=== PATIENT | male | born 1985 | race American Indian/Alaskan Native ===

== ENCOUNTER → 2024-05-29 | Outpatient (CLI) | payer OTHER, MEDICAID, SELFPAY | END | disposition home or self-care (01) | LOC: SWHD 12:37 | PROVIDERS: PCP Physician Assistant; Referring Provider Physician Assistant; Visit Provider Student in an Organized Health Care Education/Training Program | DX: I87.312 Chronic venous hypertension (idiopathic) with ulcer of left lower extremity (principal); L97.821 Non-pressure chronic ulcer of other part of left lower leg limited to breakdown of skin; R60.0 Localized edema; F17.200 Nicotine dependence, unspecified, uncomplicated; I10 Essential (primary) hypertension; E11.69 Type 2 diabetes mellitus with other specified complication; E66.9 Obesity, unspecified | CPT/HCPCS: 97597; 97598 ×2; 99213; A9270; G0463 ==

== ENCOUNTER → 2024-06-01 | Outpatient (CLI) | payer OTHER, MEDICAID, SELFPAY | END | disposition home or self-care (01) | LOC: SWHD 10:01 | PROVIDERS: PCP Physician Assistant; Referring Provider Physician Assistant | DX: I87.312 Chronic venous hypertension (idiopathic) with ulcer of left lower extremity (principal); L97.821 Non-pressure chronic ulcer of other part of left lower leg limited to breakdown of skin; R60.0 Localized edema; F17.200 Nicotine dependence, unspecified, uncomplicated; I10 Essential (primary) hypertension; E11.69 Type 2 diabetes mellitus with other specified complication; E66.9 Obesity, unspecified | CPT/HCPCS: 29581 ==

== ENCOUNTER → 2024-06-05 | Outpatient (CLI) | payer OTHER, MEDICAID, SELFPAY | END | disposition home or self-care (01) | LOC: SWHD 10:29 | PROVIDERS: PCP Physician Assistant; Referring Provider Physician Assistant; Visit Provider Surgery | DX: L97.821 Non-pressure chronic ulcer of other part of left lower leg limited to breakdown of skin (principal); R60.0 Localized edema; F17.200 Nicotine dependence, unspecified, uncomplicated; I10 Essential (primary) hypertension; E11.69 Type 2 diabetes mellitus with other specified complication; E66.9 Obesity, unspecified | CPT/HCPCS: 29581 ==

== ENCOUNTER → 2024-06-12 | Outpatient (CLI) | payer OTHER, MEDICAID, SELFPAY | END | disposition home or self-care (01) | LOC: SWHD 11:01 | PROVIDERS: PCP Physician Assistant; Referring Provider Physician Assistant; Visit Provider Student in an Organized Health Care Education/Training Program | DX: I87.312 Chronic venous hypertension (idiopathic) with ulcer of left lower extremity (principal); L97.821 Non-pressure chronic ulcer of other part of left lower leg limited to breakdown of skin; R60.0 Localized edema; I10 Essential (primary) hypertension; E11.69 Type 2 diabetes mellitus with other specified complication; E66.9 Obesity, unspecified | CPT/HCPCS: 99212; G0463 ==

== ENCOUNTER 2025-01-16 14:52 | Inpatient (IN) | payer OTHER, MEDICAID, SELFPAY ==
[2025-01-16] VITALS (10 sets, daily range): BP systolic 131–170; BP diastolic 66–102; PULSE 100–124; RESP 18–44; TEMP 37.2–39.5; O2SAT 93–100; BMI 101.7
--- NOTE | 2025-01-16 15:38 | XR_ITS ---
Examination: AP chest single view TECHNIQUE: AP portable semiupright chest single view Date and time: January 16, 2025 1545 hours INDICATIONS: Sepsis protocol fever today FINDINGS: Minor prominence left ventricle No lobar pneumonia. Stable granuloma right lower lobe IMPRESSION: No lobar pneumonia
--- NOTE | 2025-01-16 15:38 | EKG_ITS ---
[facility] Test Date: 2025-01-16 Pat Name: NANY MONREAL Department: Room: - Gender: Male Librarian: : 1985 Requested By: Clemencia Styles Order Number: [id number] Reading MD: Clemencia Styles Measurements Intervals [place] Rate: 107 P: 65 FL: 124 QRS: 97 QRSD: 109 T: 29 QT: 335 QTc: 447 Interpretive Statements SINUS TACHYCARDIA WITH FREQUENT VENTRICULAR PREMATURE COMPLEXES BORDERLINE RIGHT AXIS DEVIATION [QRS AXIS > 90] ABNORMAL RHYTHM ECG No previous ECG available for comparison /[id number]/S0/[id number]
[2025-01-16 16:06] LABS: Basophils # (Auto) 0.1 Thou/mm3 (0.0-0.2); Basophils % (Auto) 0 % (0-2.5); Eosinophils # (Auto) 0.0 Thou/mm3 (0.0-0.5); Eosinophils % (Auto) 0 % (0-10); Hematocrit 43.8 % (41.0-53.0); Hemoglobin 14.8 g/dL (13.5-16.0); Immature Granulocytes Auto 0.21 Thou/mm3 (0.00-0.00); Lymphocytes # (Auto) 0.8 Thou/mm3 (1.0-4.8); Lymphocytes % (Auto) 4 % (10-50); Mean Corpuscular HGB Conc 33.8 g/dl (31.0-37.0); Mean Corpuscular Hemoglobin 27.7 pg (25.0-35.0); Mean Corpuscular Volume 82 fL (80-100); Monocytes # (Auto) 0.6 Thou/mm3 (0.0-0.8); Monocytes % (Auto) 3 % (0-12); Neutrophils # (Auto) 16.3 Thou/mm3 (1.8-7.7); Neutrophils % (Auto) 91 % (37-80); Nucleated Red Blood Cell # 0.00 Thou/mm3 (0.00-0.00); Nucleated Red Blood Cell % 0 /100 WBC (0); Platelet Count 231 Thou/mm3 (140-440); RDW Standard Deviation 46.5 fL (35.1-43.9); Red Blood Count 5.34 Miln/mm3 (4.50-5.90); White Blood Count 17.9 Thou/mm3 (3.8-10.6)
[2025-01-16 16:07] LABS: Lactate (Lactic Acid) 3.0 mMol/L (0.4-2.0)
[2025-01-16] MEDS: ACETAMINOPHEN 500 MG TABLET 1000 MG PO (16:19)
[2025-01-16 16:23] LABS: INR 1.2 (0.9-1.3); Partial Thromboplastin Time 32.8 Seconds (22.0-36.0); Prothrombin Time 13.0 Seconds (9.0-12.2)
[2025-01-16 16:32] LABS: Alanine Aminotransferase 43 U/L (10-49); Albumin, Serum 4.0 gm/dL (3.5-5.0); Albumin/Globulin Ratio 1.1 (1.2-2.2); Alkaline Phosphatase 79 U/L (46-116); Anion Gap 13 (7-16); Aspartate Amino Transferase 63 U/L (0-34); BUN/Creatinine Ratio 11 Ratio (12-20); Bilirubin,Total 0.8 mg/dL (0.3-1.2); Blood Urea Nitrogen 17 mg/dL (9-23); Calcium 8.9 mg/dL (8.3-10.6); Calcium (Corrected) 8.9 mg/dL (8.5-10.1); Carbon Dioxide 21.5 mMol/L (20.0-31.0); Chloride 97 mMol/L (98-107); Creatinine (Component) 1.5 mg/dL (0.6-1.3); Estimated Creatinine Clearance 159.7 mL/min (>60); Globulin 3.7 gm/dL (2.3-3.5); Glucose 123 mg/dL (74-106); Osmolality,Calculated 265 (275-295); Potassium 4.0 mMol/L (3.4-5.1); Procalcitonin 5.45 ng/ml (0.0-0.49); Sodium 131 mMol/L (136-145); Total Protein 7.7 gm/dL (5.7-8.2); eGFR > 60 See Note
--- NOTE | 2025-01-16 16:36 | PC.CC ---
Addendum entered by Sabino Kenney RN 01/16/25 19:06: 1902 called [facility], spoke to Sera and notified the measurements. 185 received call from ED charge nurse about pt measurements PT'S ABDOMINAL GIRTH WITH BILATERAL TO THE SIDE MEASURED ABOUT 90 INCHES. PT'S ABDOMINAL GIRTH WITHOUT HANDS TO THE SIDE MEASURED ABOUT 88 INCHES. Addendum entered by Sabino Kenney RN 01/16/25 18:04: 1757 received call from Natty at [facility]. She stated to measure the widest point/circumference of the patient. She also stated they might be able to do weight but their limit for circumference is 27 inches. I called ED charge nurse, informed about doing measurements and call me back. Addendum entered by Sabino Kenney RN 01/16/25 17:54: 1746 received call from Natty at [facility]. Natty stated Yary has a [address] She wants to speak to [facility]. Conference call connected. 1736 called [facility], spoke to Maykel and initiated the transfer. She stated the nurse will give me a call back for verbal clinicals. Addendum entered by Sabino Kenney RN 01/16/25 17:36: 1735 clinicals sent to [facility]. Addendum entered by Sabino Kenney RN 01/16/25 17:25: 1724 Received call from Eda at [facility] and initiated the transfer. Ead stated the transfer request is declined because their CT weight limit is 204 kg, and MRI weight limit is 181kg. Addendum entered by Sabino Kenney RN 01/16/25 17:15: 1715 Called [facility] to initiate the transfer, left VM. Addendum entered by Sabino Kenney RN 01/16/25 17:07: [address] [facility] and [facility]. Original Note: 1636 received call from [facility] pt needs to be transferred for imaging, pt weight is 312.525 kg. Pt is septic, sob, cellulites of left lower leg, redness to right groin. Informed [facility] that I need ER provider notes in order to send clinicals.
--- NOTE | 2025-01-16 16:37 | PC.NURSE ---
SPOKE TO ORTHOTICS PROSTHETICS ASSISTANT AND THIS RN WAS MADE AWARE THAT ORTHOTICS PROSTHETICS ASSISTANT UNABLE TO TAKE SCANS FOR THIS PT DUE TO PT'S HABITUS; [facility] L[facility]. MILTON ZAPATA MADE AWARE.
[2025-01-16] MEDS: Vancomycin Inj 2,000 MG in SODIUM CHLORIDE 0.9% 500 ML 500 ML 150 MG IV (16:45)
[2025-01-16 16:46] LABS: Collection Type, Urine Voided
--- NOTE | 2025-01-16 16:56 | PD.EDEXREM ---
ED Extremity Problem RME/HPI General Chief complaint: Extremity Problem,Nontraumatic Stated complaint: LEG PAIN Time Seen by Provider: 01/16/25 15:38 Source: patient and EMS Arrival date/time: 01/16/25 14:52 Limitations: no limitations RME / HPI RME / HPI Narrative: 39-year-old male who is brought in by EMS. He will went to clinic today for left lower leg pain, shortness of breath, and right groin pain. When he arrived, he triggered our sepsis alert. There is for the past 3 days, sudden increased swelling and pain in his left lower leg. He has a history of hypertension, no diabetes. Denies any falls or injuries. Has no cough. No chest pain. Has no nausea, vomiting, or diarrhea. No urinary complaints. He has no dysuria. No falls or injuries. He is able to self transfer and is weight bearing. Related Data Previous Rx's ?Medication ?Instructions ?Recorded Lactobacillus rhamnosus GG 10 1 cap PO BID #60 caps 05/18/19 billion cell capsule (Culturelle) ascorbic acid (vitamin C) 250 mg 500 mg (2 x 250 mg) PO BID #60 tabs 05/18/19 tablet (Vitamin C) hydrochlorothiazide 12.5 mg capsule 12.5 mg PO QDAY #30 caps 05/18/19 ibuprofen 800 mg tablet 800 mg PO BID PRN pain #14 tabs 05/18/19 lisinopril 20 mg tablet 20 mg PO QDAY #30 tabs 05/18/19 multivitamin with minerals-ferrous 1 tab PO QDAY #30 tabs 05/18/19 sulfate 4.5 mg iron tablet (One Daily Multivitamins with Minerals) zinc sulfate 50 mg zinc (220 mg) 220 mg (4.4 x 50 mg zinc (220 mg)) 05/18/19 capsule PO QDAY #30 caps Allergies Allergy/AdvReac Type Severity Reaction Status Date / Time brompheniramine Allergy Unknown SOB Verified 01/16/25 15:31 dextromethorphan Allergy Unknown SOB Verified 01/16/25 15:31 phenylpropanolamine Allergy Unknown SOB Verified 01/16/25 15:31 pseudoephedrine Allergy Unknown SOB Verified 01/16/25 15:31 shellfish derived Allergy Unknown ALLERGY Verified 01/16/25 15:31 SYMPTOMS Review of Systems Review of Systems Systems Reviewed: All systems reviewed, normal except as documented ED Exam General Limitations: Present no limitations General appearance: Present alert and in no apparent distress Head Head exam: Present atraumatic Eye Eye exam: Present normal appearance, PERRL and EOMI ENT ENT exam: Present normal exam, normal oropharynx and mucous membranes moist Neck Neck exam: Present normal inspection, full ROM and trachea midline Chest Chest inspection: Present normal inspection and symmetric chest wall rise Respiratory Respiratory exam: Present normal lung sounds bilaterally (Lung tones are distant); Absent wheezes, stridor or accessory muscle use Cardiovascular Cardiovascular exam: Present tachycardia and normal heart sounds Abdominal Exam Abdominal exam: Present soft, normal bowel sounds and other (There is mild erythema and skin warmth below the pannus no open wounds are present.); Absent tenderness, guarding or rebound Extremities Exam Extremities exam: Present normal inspection, full ROM and other (There is bilateral lower leg edema. This is worse on the left. There is diffuse induration, warmth, erythema, and mild fluctuance at the left lower leg along the anterior aspect.) Back Exam Back exam: Present normal inspection and full ROM Neurological Exam Neurological exam: Present alert and oriented X3 Psychiatric Psychiatric exam: Present normal affect and normal mood Skin Skin exam: Present warm, dry, intact and normal color Course Course Course Narrative: Care signed out to Dr. Joe at shift change. Quality Measures none Orders Category Date Time Status Bedside Blood Glucose NOW Care 01/16/25 15:[address] Screening NOW Care 01/16/25 15:47 Active Rn Intake Q4H START 00 Care 01/16/25 15:38 Active Insert IV NOW Care 01/16/25 15:38 Active Strict Intake and Output Routine Care 01/16/25 15:38 Ordered Transfer to another facility [Transfer/Discharge] Stat Discharge 01/16/25 16:35 Active CA echo doppler complete Stat Exams 01/16/25 23:[address] abdomen pelvis w con Stat Exams 01/16/25 15:[address] angio chest Stat Exams 01/16/25 15:[address] lower leg LT w con Stat Exams 01/16/25 15:46 Ordered US abdomen Stat Exams 01/16/25 23:09 Ordered US renal BI Stat Exams 01/17/25 00:03 Ordered US venous doppler LE LT Stat Exams 01/16/25 23:09 Ordered XR chest 1V SEPSIS PROTOCOL Stat Exams 01/16/25 15:38 Completed XR tibia fibula LT 2V Stat Exams 01/16/25 17:05 Completed BNP [B-Type Natriuretic Peptide] Stat Lab 01/16/25 15:48 Completed Blood Culture (Lab) Stat Lab 01/16/25 15:48 Received CBC Stat Lab 01/16/25 15:48 Completed Comprehensive Metabolic Panel Stat Lab 01/16/25 15:48 Completed Lactate (Lactic Acid) Stat Lab 01/16/25 15:48 Completed Lactic Acid, 3 HR Stat Lab 01/16/25 19:21 Completed Magnesium Stat Lab 01/16/25 15:48 Completed Partial Thromboplastin Time Stat Lab 01/16/25 15:48 Completed Procalcitonin Stat Lab 01/16/25 15:48 Completed Prothrombin Time with INR Stat Lab 01/16/25 15:48 Completed Troponin I Stat Lab 01/16/25 15:48 Completed Urinalysis Stat Lab 01/16/25 16:39 Completed Urine Culture Stat Lab 01/16/25 16:39 Received Acetaminophen Tab [Tylenol ES Tab] Med 01/16/25 15:50 Discontinued 1,000 mg PO X1 ONE Magnesium Sulfate 2 GM Ivpb [Magnesium Sulfate Ivpb] Med 01/17/25 00:03 Active 2 gm in 50 ml IV X1 Sodium Chloride 0.9% 1000 ml [Ns] 1,000 ml Med 01/16/25 22:32 Discontinued IV 999 mls/hr Sodium Chloride 0.9% 1000 ml [Ns] 1,000 ml Med 01/16/25 22:33 Discontinued IV 999 mls/hr Vancomycin Inj 2,000 mg Med 01/16/25 15:46 Discontinued Sodium Chloride 0.9% 500 ml [Ns] 500 ml IV X1 EKG (RT) Stat RT 01/16/25 15:38 Draft Vital Signs Vital signs: Vital Signs Temperature 103.1 F H 01/16/25 15:00 Pulse Rate 100 01/16/25 15:00 Respiratory Rate 22 H 01/16/25 15:00 Blood Pressure 156/74 H 01/16/25 15:00 Pulse Oximetry (%) 100 01/16/25 15:00 Oxygen Delivery Method Nasal Cannula 01/16/25 15:00 Extremity Problem MDM Narrative MDM Narrative:: 39-year-old male who is brought in by EMS. He will went to clinic today for left lower leg pain, shortness of breath, and right groin pain. When he arrived, he triggered our sepsis alert. There is for the past 3 days, sudden increased swelling and pain in his left lower leg. He has a history of hypertension, no diabetes. Denies any falls or injuries. Has no cough. Has nausea, vomiting, or diarrhea. No urinary complaints. He has no dysuria. On exam, patient is an obese, male, with tachycardia and fever. He has moderate tachypnea. Differential includes pulmonary emboli, pneumonia, Del's gangrene, left leg cellulitis, abscess, sepsis. He has a leukocytosis of 17.9 K, hemoglobin hematocrit are stable. He has mild hyponatremia 131. Potassium is 4.0. Creatinine is elevated at 1.5, glucose is 123. His initial lactic acid is 3.0. Urine is pending. Chest ray reveals clear expanded lungs without any mass or infiltrate. Patient received a dose of acetaminophen 1 g, vancomycin 2 g, We were unable to obtain advanced imaging due to the patient's size and our equipment. I do believe the patient warrants further workup including [facility] imaging to assess for possible PE, Del's gangrene, in the left lower extremity. We will obtain plain films in the interim to assess for potential soft tissue gas of the lower leg. However do believe the patient warrants transfer for advanced imaging studies. This was discussed with Dr. Price, the attending ER physician. Patient data External records reviewed:: None Clinical information provided by:: patient and EMS Social determinants that could affect healthcare access:: none Patient has the following chronic illnesses:: Obesity, hypertension How is presenting disease/condition affected by chronic disease/condition?: exacerbated by Evaluation data The following diagnostics were reviewed and interpreted by me:: lab results (Leukocytosis and lactic acidosis) and radiology exam(s) (Chest reveals clear expanded lungs without mass or infiltrate) Lab and/or radiology exams considered but not ordered:: n/a Interpretation Summary: Osteomyelitis, peripheral artery disease Medications / Prescriptions Medications or Prescriptions considered but not ordered:: n./a Medication administrations:: Medication Administration History Magnesium Sulfate (Magnesium Sulfate Ivpb) 2 gm in 50 mls @ 25 mls/hr IV X1 ONE Stop: 01/17/25 02:02 Discontinued Medications Acetaminophen (Acetaminophen 500 Mg Tablet) 1,000 mg PO X1 ONE Stop: 01/16/25 15:51 Last Admin: 01/16/25 16:19 Dose: 1,000 mg Documented By: GM Vancomycin HCl 2,000 mg/ (Sodium Chloride) 500 mls @ 150 mls/hr IV X1 ONE Stop: 01/16/25 19:05 Last Infusion: 01/16/25 20:22 Dose: Infused Documented By: Admin: 01/16/25 16:45 Dose: 10 mg/min, 150 mls/hr Documented By: GM Sodium Chloride (Ns) 1,000 mls @ 999 mls/hr IV .Q1H1M ONE Stop: 01/16/25 23:32 Last Admin: 01/16/25 23:49 Dose: 999 mls/hr Documented By: CG Sodium Chloride (Ns) 1,000 mls @ 999 mls/hr IV .Q1H1M ONE Stop: 01/16/25 23:33 Last Admin: 01/16/25 23:54 Dose: 999 mls/hr Documented By: CG See above Consultations Consultation(s) initiated? (list below): Yes Diagnosis Extremity Problem Differential Diagnosis: cellulitis, lower extremity edema and other (Pulm emboli, Del's gangrene) Most likely diagnosis given after review of the tests above:: Osteomyelitis, peripheral artery disease Admission Indicated Admission indicated?: indicated Admission Request Was there a request for admission?: Yes Admission Attestation Admission request attestation: Discussed case with [] from Hospitalist service regarding admission. Discussed patients ED course, exam findings, labs, and radiology results. The Hospitalist [agrees,declines] to accept the patient for admission. Disposition Plan Disposition Plan: Admit Discharge Plan Prescriptions/Referrals Prescriptions/Med Rec: No Action lisinopril 20 mg Tablet 20 mg PO QDAY Qty: 30 0RF ibuprofen 800 mg tablet 800 mg PO BID PRN (Reason: pain) Qty: 14 0RF ascorbic acid (vitamin C) [Vitamin C] 250 mg Tablet 500 mg PO BID Qty: 60 0RF hydrochlorothiazide 12.5 mg Capsule 12.5 mg PO QDAY Qty: 30 0RF Culturelle 10 billion cell Capsule 1 cap PO BID Qty: 60 0RF zinc sulfate 220 (50) mg Capsule 220 mg PO QDAY Qty: 30 0RF One Daily Multi-Vit w-Mineral 4.5 mg iron Tablet 1 tab PO QDAY Qty: 30 0RF Referrals: No Primary/Family,Physician [Primary Care Provider] - In 1 week Problem List Clinical Impression: Morbid obesity, Cellulitis, Sepsis Patient/Caregiver Discharge Instructions Print Language: Ukrainian
--- NOTE | 2025-01-16 17:05 | XR_ITS ---
Examination: Tibia-Fibula, left , 2 views Technique: Tibia-fibula AP lateral 2 views Date and time of exam: January 16, 2025 1722 hours INDICATIONS: Left leg redness and swelling beginning yesterday. FINDINGS: Soft tissue edema No fracture. No cortical bone destruction No foreign body IMPRESSION: No fracture or cortical bone destruction
[2025-01-16 17:15] LABS: Bacteria,Urine Rare; Bilirubin,Urine 1+ (Negative); Blood,Urine 1+ (Negative); Clarity,Urine Turbid (Clear/Hazy); Color,Urine Yellow (Lt Yel-Yel); Glucose, Urine Negative (Negative); Hyaline Casts,Urine < 1 /hpf (0-1); Ketones,Urine Negative (Negative); Leukocyte Esterase,Urine Negative (Negative); Nitrite,Urine Negative (Negative); PH,Urine 6.0 (5.0-7.0); Protein,Urine 2+ (Neg - Trace); RBC,Urine 4 /hpf (0-3); Specific Gravity,Urine 1.034 (1.001-1.035); Squamous Epithelial Cell,Urine 5 /hpf (0-5); Urobilinogen,Urine 4.0 mg/dL (0.0-1.0); WBC,Urine 19 /hpf (0-5)
--- NOTE | 2025-01-16 18:54 | PC.NURSE ---
PT'S ABDOMINAL GIRTH WITH BILATERAL TO THE SIDE MEASURED ABOUT 90 INCHES. PT'S ABDOMINAL GIRTH WITHOUT HANDS TO THE SIDE MEASURED ABOUT 88 INCHES.
[2025-01-16 19:01] LABS: Reflex Lactate? Y
--- NOTE | 2025-01-16 19:05 | PC.NURSE ---
PT'S ABDOMINAL GIRTH WITH BILATERAL TO THE SIDE MEASURED ABOUT 90 INCHES. PT'S ABDOMINAL GIRTH WITHOUT HANDS TO THE SIDE MEASURED ABOUT 84 INCHES.
[2025-01-16 19:29] LABS: Lactic Acid, 3 HR 1.4 mMol/L (0.4-2.0)
--- NOTE | 2025-01-16 20:32 | PC.NURSE ---
CALLED [facility] , NO AVAILABLE BARIATRIC CT.
--- NOTE | 2025-01-16 20:34 | PC.NURSE ---
CALLED [facility] , [facility] CT.
--- NOTE | 2025-01-16 22:30 | PC.NURSE ---
Route Service Manager assumes care of patient at this time, pt reports pain to left leg x 2 days along with a fever, pt reports pain 6/10. Pt is A/O x 3, noted to be 5 L/min NC and maintaing SaO2 at or above 95%. H.O.B at 30 degrees
[2025-01-16 22:52] LABS: Magnesium 1.1 mg/dL (1.6-2.6); Troponin I < 0.020 ng/mL (0.0-0.045)
--- NOTE | 2025-01-16 22:57 | PC.NURSE ---
CALLED [facility]= OUT OF WEIGHT CAPACITY MIGUELINA LOPEZ =OUT OF WEIGHT CAPACITY [facility]=OUT OF WEIGHT CAPACITY [facility]=OUT OF WEIGHT CAPACITY [facility]=OUT OF WEIGHT CAPACITY
[2025-01-16 23:00] LABS: B-Type Natriuretic Peptide 33 pg/mL (0-100)
--- NOTE | 2025-01-16 23:11 | ECHO_ITS ---
Transthoracic Echo Report Ht (in): 69 Wt (lb): 689 Exam Location: Echo Lab Status: Emergency Summer Child Caregiver: Mica Olson Indications: Procedure Performed: BP: 158 / 85 HR: 96 Technical Quality: Technically difficult study MEASUREMENTS (Male / Female) Normal Values 2D ECHO LV Ejection Fraction MOD 4C 44.3 % LV Cardiac Index MOD 4C 3810.6 cm?/min?m? LV Ejection Fraction 4C AL 44.7 % LV Cardiac Index 4C AL 3972.7 cm?/min?m? DOPPLER AV Peak Velocity 208.5 cm/s AV Peak Gradient 17.4 mmHg AV Mean Gradient 10.0 mmHg AV Velocity Time Integral 32.0 cm LVOT Peak Velocity 123.0 cm/s LVOT Peak Gradient 6.1 mmHg LVOT Velocity Time Integral 23.2 cm MV Area PHT 4.2 cm? Mitral E Point Velocity 88.1 cm/s Mitral A Point Velocity 77.6 cm/s Mitral E to A Ratio 1.1 PV Peak Velocity 137.0 cm/s PV Peak Gradient 7.5 mmHg FINDINGS Left Ventricle Normal left ventricular size, wall thickness, systolic function with no obvious regional wall motion abnormalities. Normal left ventricular diastolic filling pattern for age. The ejection fraction is visually estimated at 50-55%. Right Ventricle The right ventricle not well visualized. The right ventricular systolic function is normal. Left Atrium The left atrium is normal by two-dimensional, color flow and Doppler imaging with no structural abnormalities, no thrombus formation present. Right Atrium The right atrium is normal by two-dimensional imaging, color flow and Doppler imaging with no structural abnormalities, no thrombus formation present. Atrial Septum The interatrial septum appears normal with no evidence of a shunt. Aorta The aorta is normal by two-dimensional, color flow and Doppler interrogation. Mitral Valve Trace mitral regurgitation. Aortic Valve The aortic valve is trileaflet and normal by two-dimensional, color flow and Doppler interrogation. There is no significant aortic valve regurgitation. Tricuspid Valve There is trace tricuspid valve regurgitation. Pulmonic Valve The pulmonic valve is not well visualized. There is no significant pulmonic valve regurgitation. Vessels Dilated inferior vena cava. Pericardium The pericardium is normal by two-dimensional imaging. There is no significant pericardial effusion. CONCLUSIONS Indication: SOB All the cardiac structures suboptimally visualized from standard views. Poor quality images. Normal LV size. The ejection fraction is visually estimated at 50-55%. LVEF can not be assessed accurately. Unable to evaluate diastolic function due to technically difficult study. The RV not well visualized. The RV systolic function appears normal. All the valves suboptimally visualized. Eitan Flores (Electronically Signed) Final Date: 18 January 2025 22:53
--- NOTE | 2025-01-16 23:27 | PD.EDADDENDU ---
Emergency Room Addendum <Carolyne Cabral - Last Filed: 01/17/25 02:07> Addendum Narrative: 2330: Care assumed from BENNY Pryor (emergency mid-level provider). Past medical, surgical, social and family history reviewed. Vitals and home medications reviewed. Results and treatment plan discussed. They will assume the care of the patient at this time and will follow the patient, pending US, doppler studies, and transfer. The following addendum documentation note is intended to reflect any pending information, findings, or radiology results not included in the patient?s initial chart by the previous shift scribe. 0117: Discussed with Dr. De Souza for consult. Reviewed the patient?s HPI, PMHx, lab and/or radiology results. Treatment plan was discussed. Advises to admit with ABX and Dr. De Souza will evaluate the patient in the morning. 0121: Discussed with Dr. Mendes for admission. Reviewed the patient?s HPI, PMHx, lab and/or radiology results. Discussed treatment plan. Will accept patient for admission. <Sarahy Joe MD - Last Filed: 01/17/25 05:46> Addendum Narrative: 2330: Care assumed from BENNY Pryor (emergency mid-level provider). Past medical, surgical, social and family history reviewed. Vital signs and home medications reviewed. Results and treatment plan discussed. Will assume the care of the patient at this time. The following addendum documentation note is intended to reflect any pending information, findings, or radiology results not included in the patient?s initial chart by the previous shift scribe. 0117: Discussed with Dr. De Souza for consult. Reviewed the patient?s HPI, PMHx, lab and/or radiology results. Treatment plan and physical exam was discussed. Patient with cellulitis in suprapubic region and left lower extremity. Unable to obtain CT scan for further evaluation of cellulitis due to patient size. Recommends add clindamycin to current antibiotic regimen. Agrees to consult. 0121: Discussed with Dr. Mendes for admission. Reviewed the patient?s HPI, PMHx, lab and/or radiology results. Discussed treatment plan. Will accept patient for admission.
[2025-01-16] MEDS: SODIUM CHLORIDE 0.9% 1000 ML 1,000 ML 999 ML IV ×2 (23:49→23:54)
[2025-01-17] VITALS (14 sets, daily range): BP systolic 122–172; BP diastolic 75–98; PULSE 78–109; RESP 19–30; TEMP 36.6–37.7; O2SAT 94–100; BMI 101.7
[2025-01-17] MEDS: Magnesium Sulfate 2 GM Ivpb 2 GM/50 ML BAG IV (00:56)
--- NOTE | 2025-01-17 01:31 | PD.RESHP ---
Documentation for date of: 01/17/25 HPI History of Present Illness Chief complaint: Left leg pain History of present illness: 39-year-old patient with past medical history of morbidly obesity, hypertension brought in by EMS on 01/16 after having some lower left back pain with shortness of breath and right groin pain. Patient states that for the past 3 days he has been having worsening left leg pain. Patient apparently is able to ambulate at home but noticed that he was having difficulty in the past several days. He went to his PCP who examined his lower extremity and groin region but stated that he needed to go to the ED as the infection was too severe. Patient states that he has been having fever/chills but unsure exactly what temperature as he does not have a thermometer. Patient denies having any concerning symptoms such as chest pain, palpitations, cough, dizziness, nausea/vomiting or diarrhea. Medical history: As stated above Surgical history: Denies Allergies: As listed Medications: Pending med rec Family history: Significant family history of hypertension and diabetes Social history: Patient lives in [place], denies any tobacco, alcohol or drug use. Patient apparently able to ambulate at home ROS: All 12 systems assessed and the patient denies unless otherwise stated in HPI In the ED, patient presented hypertensive 156/74, tachycardic with heart rate of 100, tachypneic with a respiratory rate 22, febrile 103.1 ?F, saturating 100 on 5 L nasal cannula. Pertinent lab findings included WBC 17.9, sodium 131, chloride 97, BUN 17, creatinine 1.5 with a GFR of greater than 60, lactic acid was initially 3.0 but has downtrended to 1.4, magnesium of 1.1, AST 63, ALT 43, troponin less than 0.030, BNP of 33, Pro-Antoine 5.45. Urinalysis showed proteinuria, hematuria, pyuria but no overt signs of infection. Chest x-ray showed no lobar pneumonia, EKG showed sinus tachycardia with frequent PVCs and tibia-fibula x-ray showed no fracture or cortical bone destruction. Patient will be admitted with sepsis secondary to cellulitis of the left leg and will be treated with IV antibiotics and IV fluid resuscitation for acute kidney injury. Exam Vital Signs Temp Pulse Resp BP Pulse Ox O2 Del Method O2 Flow Rate 99.6 F 89 20 144/90 H 94 L Nasal Cannula 5 01/17/25 00:03 01/17/25 00:03 01/17/25 00:03 01/17/25 00:03 01/17/25 00:03 01/17/25 00:03 01/17/25 00:03 Narrative Exam Physical Exam: GENERAL: Awake, answering questions appropriately, morbidly obese HEENT: NC/AT. Moist mucosa. PERRLA/EOMI. CARDIO: Tachycardic, no obvious murmurs, no JVD. PULM: No coughing but visibly short of breath on 5 L nasal cannula. Lungs CTA B/L. GI: Abdomen soft, Panniculitis noted with erythema, tenderness to palpation in the right lower quadrant, borborygmi apparent SKIN/MSK/EXT: Bilateral lower extremity venous changes, left lower extremity has purulent discharge from a venous ulcer, cellulitis of the left extremity with erythema. +Pedal pulses present B/L. NEURO: Oriented x3, Moves extremities x4, no focal neurologic deficits noted. Results: Labs 01/16/25 15:48 01/16/25 15:48 Labs: Short CBC 01/16/25 Range/Units 15:48 WBC 17.9 H (3.8-10.6) Thou/mm3 Hgb 14.8 (13.5-16.0) g/dL Hct 43.8 (41.0-53.0) % Plt Count 231 (140-440) Thou/mm3 BMP 01/16/25 15:48 Sodium 131 L Potassium 4.0 Chloride 97 L Carbon Dioxide 21.5 BUN 17 Creatinine 1.5 H Glucose 123 H Calcium 8.9 Cardiac Enzymes 01/16/25 Range/Units 15:48 Troponin I < 0.020 (0.0-0.045) ng/mL Liver Function 01/16/25 Range/Units 15:48 Total Bilirubin 0.8 (0.3-1.2) mg/dL AST 63 H (0-34) U/L ALT 43 (10-49) U/L Alkaline Phosphatase 79 (46-116) U/L Albumin 4.0 (3.5-5.0) gm/dL Urine 01/16/25 Range/Units 16:39 Urine Color Yellow (Lt Yel-Yel) Urine Clarity Turbid A (Clear/Hazy) Urine pH 6.0 (5.0-7.0) Ur Specific Tichnor 1.034 (1.001-1.035) Urine Protein 2+ A (Neg - Trace) Urine Glucose (UA) Negative (Negative) Quality Measures Quality Measures none Medications Home Medications and Allergies Allergies Allergy/AdvReac Type Severity Reaction Status Date / Time brompheniramine Allergy Unknown SOB Verified 01/16/25 15:31 dextromethorphan Allergy Unknown SOB Verified 01/16/25 15:31 phenylpropanolamine Allergy Unknown SOB Verified 01/16/25 15:31 pseudoephedrine Allergy Unknown SOB Verified 01/16/25 15:31 shellfish derived Allergy Unknown ALLERGY Verified 01/16/25 15:31 SYMPTOMS Visit Medications Acetaminophen (Acetaminophen 325 Mg Tablet) 650 mg PO Q6H PRN PRN Reason: PAIN SCALE 1-3 (mild Stop: 02/16/25 01:22 Dextrose (Dextrose 50%-Water Inj 50 Ml Syringe) 25 ml IV Q15MIN PRN PRN Reason: BG 50-70 responsive npo pt Stop: 02/16/25 01:28 Dextrose (Dextrose 50%-Water Inj 50 Ml Syringe) 50 ml IV Q15MIN PRN PRN Reason: BG <50 OR BG <70 & pt unresponsive Stop: 02/16/25 01:28 Glucagon (Glucagon Inj 1 Mg Vial) 1 mg IM Q15MIN PRN PRN Reason: BG <70, and no IV access Heparin Sodium (Porcine) (Heparin Sod Inj 5000 Unit/Ml Vial) 5,000 unit SC Q12HR [facility] Stop: 01/31/25 08:59 Magnesium Sulfate (Magnesium Sulfate Ivpb) 2 gm in 50 mls @ 25 mls/hr IV X1 ONE Stop: 01/17/25 02:02 Last Admin: 01/17/25 00:56 Dose: 25 mls/hr Clindamycin Phosphate 900 mg/ (IV Miscellaneous Supplies) 50 mls @ 50 mls/hr IV X1 ONE Stop: 01/17/25 02:21 Lactated Ringer's (Lactated Ringers) 1,000 mls @ 75 mls/hr IV .[id number] [facility] Stop: 01/17/25 14:49 Clindamycin Phosphate 900 mg/ (IV Miscellaneous Supplies) 50 mls @ 50 mls/hr IV Q8HR [facility] Stop: 01/24/25 05:59 Magnesium Sulfate (Magnesium Sulfate Ivpb) 4 gm in 50 mls @ 12.5 mls/hr IV X1 ONE Stop: 01/17/25 05:27 Insulin Human Lispro (Insulin Lispro (Admelog) 1 Unit/0.01 Ml Unit) 0 unit SC ACHS BETSY; Protocol Stop: 02/16/25 07:29 Ondansetron HCl (Ondansetron Inj 2 Mg/Ml Inj 2 Ml) 4 mg IVP Q6H PRN; Protocol PRN Reason: NAUSEA OR VOMITING Stop: 02/16/25 01:22 Pharmacy Consult (Vancomycin Pharmacy To Dose 1 Each Each) 1 each IV QDAY BETSY Stop: 02/16/25 08:59 Sennosides (Senna Tablet) 1 tab PO QDAY PRN; Protocol PRN Reason: constipation Stop: 02/16/25 01:22 Discontinued Medications Acetaminophen (Acetaminophen 500 Mg Tablet) 1,000 mg PO X1 ONE Stop: 01/16/25 15:51 Last Admin: 01/16/25 16:19 Dose: 1,000 mg Vancomycin HCl 2,000 mg/ (Sodium Chloride) 500 mls @ 150 mls/hr IV X1 ONE Stop: 01/16/25 19:05 Last Infusion: 01/16/25 20:22 Dose: Infused Sodium Chloride (Ns) 1,000 mls @ 999 mls/hr IV .Q1H1M ONE Stop: 01/16/25 23:32 Last Infusion: 01/17/25 01:17 Dose: Infused Sodium Chloride (Ns) 1,000 mls @ 999 mls/hr IV .Q1H1M ONE Stop: 01/16/25 23:33 Last Infusion: 01/17/25 01:17 Dose: Infused Piperacillin/Tazobactam/Dextrose (Zosyn) 3.375 gm in 50 mls @ 100 mls/hr IV X1 ONE Stop: 01/17/25 01:30 Assessment & Plan Plan 39-year-old patient with past medical history of morbidly obesity, hypertension brought in by EMS after having some lower left back pain with shortness of breath and right groin pain will be admitted with sepsis secondary to cellulitis of the left leg and will be treated with IV antibiotics and IV fluid resuscitation for acute kidney injury. #Sepsis secondary to #Cellulitis #Panniculitis Patient's presenting with left lower extremity cellulitic changes, panniculitis of abdomen of the right lower quadrant Likely secondary to body habitus and morbid obesity Patient presented to the ED febrile 103.1 ?F, tachycardic, tachypneic, WBC of 17.9, endorgan dysfunction noted with an JENNIFER and lactic acidosis There is some concern that the patient potentially could have necrotizing fasciitis but unable to get a CT imaging of extremity ED provider states that they attempted transfer but were unsuccessful ED provider states that they consulted general surgery who recommended close monitoring and treating the patient with IV antibiotics for now as he was unable to be transferred for CT, will follow the patient with us Plan: IV fluid resuscitation Initiated IV antibiotic, clindamycin, vancomycin and cefepime for broad-spectrum coverage Referral to wound care General Surgery consulted, appreciate recommendations #Acute kidney injury Likely secondary to sepsis versus prerenal azotemia versus intrarenal pathology less likely Patient's baseline creatinine 0.8, presenting with creatinine of 1.5 Plan: IV fluid resuscitation as above Avoid nephrotoxic agents Renally dose medications Replete electrolytes as needed Follow-up with morning labs #Respiratory distress #Granuloma, previously seen Patient likely is experiencing respiratory distress secondary to acutely ill status and cellulitis above Patient has severe pain on examination of the region noted above Chest x-ray does not show any signs of pneumonia Plan: Continue supplemental oxygenation Treat above findings Continue to monitor for any acute changes #Hypertension Patient on home antihypertensive lisinopril 20 mg p.o. daily Plan: Consider restarting home medications when appropriate #Morbid obesity BMI of 101.7 Patient apparently has been started on GLP-1 treatments Plan: Consider bariatric surgery consultation when discharged Health Maintenance: Lines: PIV Diet: Carb consistent Bowel: Senna as needed GI prophylaxis: Not needed DVT prophylaxis: Heparin subcu Dispo: IV antibiotics for cellulitis, general surgery consulted appreciate recommendations Code: Full Patient seen and assessed with attending Dr. Vaughn Cannon, DO PGY-2 Internal Medicine - GME Attending Provider Attestation/Addendum I attest that I was physically present for the evaluation, physical examination, lab and imaging review of the patient with the residents. I discussed the case with the residents and agree with the findings and plans of care as documented above. After examination of the patient and review of the clinical data I feel that this patient needs admission to the hospital for further treatment/evaluation. Patient is a 39 years old male with past medical history of morbid obesity, hypertension who presented to the ED with complaint of left leg pain, shortness of breath and right groin pain. Patient has been having worsening leg pain for last 3 days. He ambulates without assistance at baseline but has been having difficulty with ambulation for last few days. He visited his PCP for his leg pain, redness and swelling and was advised to visit the ED. He has been having fever/chills but has not measured the temperature at home. Denies any shortness of breath, cough, abdominal pain, nausea vomiting or diarrhea. In the ED, he was hypertensive, tachycardic, tachypneic and febrile with temperature of 103.1 ?F. He was started on nasal cannula, saturating well. Lab results show WBC of 17.9, sodium 131, BUN/creatinine 17/1.5, lactic acid 3.0, magnesium 1.1, AST/ALT 63/43, procalcitonin 5.45. Urinalysis showed proteinuria, hematuria, WBC but patient does not have any symptoms. Chest x-ray showed no pneumonia. X-ray of the tibia-fibula was obtained, did not show any fracture or cortical bone destruction, showed soft tissue edema. On exam, patient was tachypneic, appears short of breath on 5 L nasal cannula. Noted to have panniculitis, with erythema, peeling of skin, tenderness, warmth, similar finding in left lower extremity, there was a ulcer on left lower extremity. Multiple attempts were made by ED for transfer to higher center to attempt CT but transfer was denied as patient's weight exceeds the scanners with capacity. Surgery was contacted by ED, who recommended starting patient on IV antibiotics and close monitoring and admission for further management as patient was unable to get transferred for CT scan. Discussed with the patient as well regarding current situation, patient understands the situation and agrees to be admitted. We will start him on broad-spectrum antibiotic with IV cefepime, vancomycin and clindamycin. Patient received IV fluid bolus in the ED, we will continue with IV hydration. General surgery and wound care has been consulted. Cultures are obtained. Patient also has JENNIFER, with IV resuscitation we will continue to monitor his kidney function and avoid nephrotoxins. Started on supplemental oxygen for respiratory distress, given body habitus, has concern for LISA/OHS as well, we will order BiPAP at bedtime. Margaret Mendes MD
[2025-01-17] MEDS: RINGERS LACTATED 1000 ML 1,000 ML 75 ML IV (02:24)
[2025-01-17] MEDS: CLINDAMYCIN 900MG IVPB 900 MG in PRE-MIXED 1 BAG 50 MG IV ×2 (02:25→14:42)
[2025-01-17] MEDS: CEFEPIME INJ 2 GM in SODIUM CHLORIDE 0.9% (Popper) 50 ML IV ×3 (02:25→14:41)
[2025-01-17] MEDS: Magnesium Sulfate 4 GM Ivpb 4 GM/50 ML BAG IV (02:25)
--- NOTE | 2025-01-17 02:30 | XR_ITS ---
Examination: Duplex scan of the lower extremity, unilateral left Date and time of exam: January 17, 2025, 0244 hours INDICATIONS: Redness swelling and pain in both legs this week Technique: Duplex scan of the extremity veins using B-mode/grayscale imaging and Doppler spectral analysis and color flow Attention is directed to internal echogenicity, compression and augmentation involving these veins, color flow assessment, spectral analysis Findings: No diagnostic visualization of the left popliteal and peroneal or posterior tibial veins Common femoral superficial femoral and greater saphenous veins are open IMPRESSION: Limited study, no DVT demonstrated
--- NOTE | 2025-01-17 02:30 | XR_ITS ---
Examination: Abdomen sonogram, complete Date and time of exam: January 17, 2025, 0233 hours Indications :sepsis cellulitis today. Technique: Multiple real-time grayscale transabdominal sonographic images of the abdomen have been obtained. Findings: Negative for gallstones Gallbladder wall 0.46 no edema Common bile duct 0.69 cm no stones Pancreas obscured by bowel gas Liver 17.35 cm no liver lesions Normal hepatopedal portal venous flow Patent IVC Right kidney 15.7 cm renal cortex 2.7 cm Left kidney obscured by the patient's size as well as spleen IMPRESSION: Limited study Negative for gallstones. Gallbladder wall is thickened and the common bile duct is enlarged 0.69 cm, consider MRCP follow-up to exclude cholecystitis and stricture or stones in the common bile duct
--- NOTE | 2025-01-17 03:43 | PRELIM_ITS ---
Left lower extremity venous Doppler ultrasound with Doppler spectral analysis. January 17, 2025 at 0243 hours Clinical history: Pain/swelling. Technique: Duplex scan of the left lower extremity deep venous systems was performed utilizing 2D grayscale imaging, Doppler spectral analysis and color flow Doppler and with compression. Comparison: None. Findings: The study is limited by the patient body habitus. Renteria scale, color flow and spectral Doppler evaluation of the left lower extremity deep veins was performed. The common femoral, superficial femoral and popliteal veins are patent and compressible. Normal respiratory variation is noted. There is no evidence of occlusive or nonocclusive thrombus. The great saphenous vein is patent and compressible at the level of the saphenofemoral junction. There is subcutaneous fat edema. Impression: The study is limited by the patient body habitus. Consider correlation with CT if clinically indicated. Allowing for the imaging limitations, no sonographic evidence of deep venous thrombosis in the left lower extremity. Subcutaneous fat edema. Report Electronically Signed By: Farooq Mirza 01/17/2025 3:43:05 AM [EST]
--- NOTE | 2025-01-17 03:45 | PC.NURSE ---
Report called to floor nurse HINA Patiño
--- NOTE | 2025-01-17 03:49 | PRELIM_ITS ---
Ultrasound Abdomen with Doppler and wave Doppler spectral analysis. January 17, 2025 at 0235 hours Clinical history: Groin pain. Technique: Grayscale and color flow images of the abdomen are provided. Hepatic and portal veins were also imaged with color flow images. Comparison: None. Findings: The study is severely limited by the patient body habitus. The liver is enlarged and demonstrates increased echogenicity. There is no intrahepatic biliary ductal dilatation. There is no gallbladder calculus, wall thickening or pericholecystic fluid is demonstrated. The common bile duct is dilated in caliber at 6.9 mm. No free fluid is demonstrated on the submitted images. The pancreas is unremarkable to the extent visualized. The right kidney measures 15.7 cm. The left kidney was not clearly visualized. There is no hydronephrosis and the corticomedullary differentiation is maintained. The spleen was not clearly visualized. The abdominal aorta and inferior vena cava are not clearly visualized. The portal vein is patent with hepatopetal flow normal wave Doppler spectral analysis. Impression: The study is severely limited by the patient body habitus. Consider correlation with CT. 1. Dilated common bile duct, further evaluation to assess for choledocholithiasis is recommended. 2. Hepatomegaly associated with liver steatosis, suspicious for steatohepatitis. Report Electronically Signed By: Farooq Mirza 01/17/2025 3:48:26 AM [EST]
[2025-01-17 05:55] LABS: Basophils # (Auto) 0.1 Thou/mm3 (0.0-0.2); Basophils % (Auto) 0 % (0-2.5); Eosinophils # (Auto) 0.0 Thou/mm3 (0.0-0.5); Eosinophils % (Auto) 0 % (0-10); Hematocrit 40.0 % (41.0-53.0); Hemoglobin 13.3 g/dL (13.5-16.0); Immature Granulocytes Auto 0.46 Thou/mm3 (0.00-0.00); Lymphocytes # (Auto) 0.9 Thou/mm3 (1.0-4.8); Lymphocytes % (Auto) 4 % (10-50); Mean Corpuscular HGB Conc 33.3 g/dl (31.0-37.0); Mean Corpuscular Hemoglobin 27.7 pg (25.0-35.0); Mean Corpuscular Volume 83 fL (80-100); Monocytes # (Auto) 1.0 Thou/mm3 (0.0-0.8); Monocytes % (Auto) 5 % (0-12); Neutrophils # (Auto) 17.6 Thou/mm3 (1.8-7.7); Neutrophils % (Auto) 88 % (37-80); Nucleated Red Blood Cell # 0.02 Thou/mm3 (0.00-0.00); Nucleated Red Blood Cell % 0 /100 WBC (0); Platelet Count 215 Thou/mm3 (140-440); RDW Standard Deviation 48.1 fL (35.1-43.9); Red Blood Count 4.81 Miln/mm3 (4.50-5.90); White Blood Count 20.0 Thou/mm3 (3.8-10.6)
[2025-01-17 06:12] LABS: Alanine Aminotransferase 38 U/L (10-49); Albumin, Serum 3.7 gm/dL (3.5-5.0); Albumin/Globulin Ratio 1.2 (1.2-2.2); Alkaline Phosphatase 73 U/L (46-116); Anion Gap 11 (7-16); Aspartate Amino Transferase 67 U/L (0-34); BUN/Creatinine Ratio 11 Ratio (12-20); Bilirubin,Total 0.7 mg/dL (0.3-1.2); Blood Urea Nitrogen 16 mg/dL (9-23); C-Reactive Protein > 10.0 mg/dL (0.0-0.9); Calcium 8.3 mg/dL (8.3-10.6); Calcium (Corrected) 8.5 mg/dL (8.5-10.1); Carbon Dioxide 22.1 mMol/L (20.0-31.0); Cardiac Risk Estimate 5.4 RATIO (4.0-6.7); Chloride 99 mMol/L (98-107); Cholesterol 92 mg/dL (132-200); Creatinine (Component) 1.4 mg/dL (0.6-1.3); Estimated Creatinine Clearance 171.1 mL/min (>60); Globulin 3.2 gm/dL (2.3-3.5); Glucose 123 mg/dL (74-106); HDL Cholesterol 17 mg/dL (40-60); LDL Cholesterol,Calculated 44 mg/dL (0-130); Osmolality,Calculated 266 (275-295); Potassium 3.9 mMol/L (3.4-5.1); Sodium 132 mMol/L (136-145); Total Protein 6.9 gm/dL (5.7-8.2); Triglycerides 155 mg/dL (30-150); eGFR > 60 See Note
--- NOTE | 2025-01-17 07:40 | PC.CC ---
Addendum entered by Sabino Kenney RN 01/17/25 14:13: Cynthia stated transfer request is declined due to capacity and reach back in 12-24 hours if transfer is still needed. Addendum entered by Sabino Kenney RN 01/17/25 14:09: [id number] called [facility], spoke to Cynthia and initiated the transfer. Addendum entered by Sabino Kenney RN 01/17/25 12:48: 1248 clinicals sent to [facility]. Addendum entered by Sabino Kenney RN 01/17/25 12:42: [address] 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 [address] Blackwell that pt needs to be transferred for CT imagining. Unable to obtain any imaging due to pt weight. Original Note: 0740 pt is admitted, I called Dr. Blackwell to see if transfer is still needed for the pt for imaging. Dr. Blackwell stated to wait until she make her morning round on the patient and speak to Dr. De Souza/general surgery regarding pkan of care. Transfer is on hold for now. Pt weight is 312.525 kg.
--- NOTE | 2025-01-17 07:56 | PD.SURCONS ---
HPI Consult details Consult date: 01/17/25 Reason for consultation narrative: Left lower extremity cellulitis History of present illness: 39-year-old morbidly obese male with history of hypertension was admitted with shortness of breath, chills, left lower extremity and groin pain. He was noted to have significant cellulitis of left lower extremity as well as lower abdomen in his pannus. He stated he has had some chills. He has had multiple similar episodes in the past requiring hospitalization and IV antibiotic treatment. He denies history of trauma, insect or spider bites. Review of Systems Constitutional Constitutional: Reports chills Cardiovascular Cardiovascular: Denies chest pain and Reports dyspnea Respiratory Respiratory: Reports dyspnea Hematologic/Lymphatic Hematologic/Lymphatic: Denies easy bleeding and Denies easy bruising Past Medical History Surgical History OTHER SURGICAL HX: Denies surgeries in the past Meds Home Medications and Allergies Allergies Allergy/AdvReac Type Severity Reaction Status Date / Time brompheniramine Allergy Unknown SOB Verified 01/16/25 15:31 dextromethorphan Allergy Unknown SOB Verified 01/16/25 15:31 phenylpropanolamine Allergy Unknown SOB Verified 01/16/25 15:31 pseudoephedrine Allergy Unknown SOB Verified 01/16/25 15:31 shellfish derived Allergy Unknown ALLERGY Verified 01/16/25 15:31 SYMPTOMS Exam Vital Signs Temp Pulse Resp BP Pulse Ox O2 Del Method O2 Flow Rate 99.8 F 92 30 H 157/82 H 100 Nasal Cannula 6 01/17/25 04:00 01/17/25 05:25 01/17/25 05:25 01/17/25 04:00 01/17/25 05:25 01/17/25 04:00 01/17/25 04:00 FiO2 32 01/17/25 05:25 Constitutional Constitutional: no acute distress and morbidly obese Routine Abdominal Exam Comments: Cellulitis of lower abdomen and pannus, due to his body habitus cannot clearly examine his perineal area. However, no fluctuance or drainage at this time Routine Extremities Exam Comments: Significant cellulitis of left lower extremity, no fluctuance, drainage or bullous formation Assessment & Plan Additional Assessment Additional comments: Significant cellulitis of left lower extremity, lower abdomen and pannus Plan Continue high doses IV antibiotics. No obvious evidence of fluctuance or drainage at this time. Ideally patient will require a CT scan, however due to his body habitus he will not fit in the scanner. Will continue conservative management with IV antibiotics
[2025-01-17] MEDS: VANCOMYCIN/WATER 1GM IVPB 200 ML IV ×2 (08:09→14:52)
[2025-01-17] MEDS: HEPARIN SOD INJ 5000 UNIT/ML VIAL SC ×2 (08:10→20:21)
[2025-01-17 09:23] LABS: Magnesium 1.7 mg/dL (1.6-2.6); Phosphorous 2.6 mg/dL (2.4-5.1)
--- NOTE | 2025-01-17 10:09 | ESPR_ITS ---
Documentation for date of: 01/17/25 Overnight admission. Patient examined at bedside. Concern for a bilateral cellulitis that worsened over the last couple days. 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 qSOFA 1. Given extensive cellulitis and body habitus, treating for necrotizing fasciitis. Vancomycin, clindamycin, and Cefepine. Infectious disease consulted, dr. Martino, appreciate recommendations. 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 Patient denied pain. Blood and urine cutlrue penidng. Pending does not qualify for CT images given body habitus. Morbid obesity. Continue to monitor JENNIFER, concern for Intrinsic Injury given given BUN/CR ration <20, montior urine output. Consider CK if worsening. with Urine lytes and Urine creatine vs preprenal in the setting of poor oral intake. HTN, started on Amlodipine and Carvedilol. Wound culture consulted, appreciate recommendations. General Surgery Consulted. Subjective Subjective Interval history: Patient seen and examined at bedside this AM. Currently rates his pain 4/10. Wound care following, noticed spreading erythema on left lower extremity within a few hours. Very concerned for necrotizing fasciiitis and Del's gangrene based on tenderness on palpation. Panniculitis wound this morning was weeping, no purulent discharge noted on leg or pannus. Labs and vitals were reviewed. Patient was hypertensive since admission, will start on amlodipine 5 mg daily and monitor for lower extremity edema. Hold home Lisinopril due to JENNIFER. WBC increased to 20 from 17.9. Currently on IV vanc, cefepime, and clindamycin. General surgery Dr. De Souza recommended IV antibiotics for now, will need CT. Infectious disease Dr. Martino consulted, pending recommendations. Will continue IVF resuscitation due to JENNIFER. Review of systems otherwise negative except what is mentioned above. Exam Vital Signs Temp Pulse Resp BP Pulse Ox O2 Del Method O2 Flow Rate 97.8 F 98 20 163/94 H 98 Nasal Cannula 6 01/17/25 08:00 01/17/25 08:10 01/17/25 08:00 01/17/25 08:10 01/17/25 08:00 01/17/25 04:00 01/17/25 04:00 FiO2 32 01/17/25 05:25 Narrative Exam Physical Exam General: Morbidly obese, sitting up in bed. Awake and in no acute distress. Conversational and non-toxic appearing. Saturating well on 3L oxygen via nasal cannula. HEENT: Normocephalic, atraumatic, mucous membranes moist. Heart: Regular rate and rhythm, normal S1 and S2, no murmurs. Lungs: Clear to auscultation with no wheezing or crackles. Abdomen: Soft, positive bowel sounds. Panniculitis with erythema and tenderness to palpation, weeping wounds present. No guarding or rebound tenderness. Neurologic: Alert and oriented x3, no gross neurological deficit, and patient able to move all 4 extremities. Extremities: Cellulitis and tenderness of left lower extremity with spreading erythema, bilateral lower extremity venous changes. Skin: No rash or ecchymoses. Objective Labs 01/18/25 05:05 01/18/25 05:05 Labs: Laboratory Results - last 24 hr 01/16/25 01/16/25 01/16/25 15:48 16:39 19:21 WBC 17.9 H RBC 5.34 Hgb 14.8 Hct 43.8 MCV 82 MCH 27.7 MCHC 33.8 RDW Std Deviation 46.5 H Plt Count 231 Neut % (Auto) 91 H Lymph % (Auto) 4 L [place] % (Auto) 3 Eos % (Auto) 0 Baso % (Auto) 0 Neut # (Auto) 16.3 H Lymph # (Auto) 0.8 L [place] # (Auto) 0.6 Eos # (Auto) 0.0 Baso # (Auto) 0.1 Immature Gran # (Auto) 0.21 H Absolute Nucleated RBC 0.00 Immature Gran % 1 H Nucleated RBC % 0 ESR PT 13.0 H INR 1.2 APTT 32.8 Sodium 131 L Potassium 4.0 Chloride 97 L Carbon Dioxide 21.5 Anion Gap 13 BUN 17 Creatinine 1.5 H Estim Creat Clear Calc 159.7 eGFR > 60 BUN/Creatinine Ratio 11 L Glucose 123 H Calculated Osmolality 265 L Lactic Acid 3.0 H 1.4 Calcium 8.9 Corrected Calcium 8.9 Phosphorus Magnesium 1.1 L Total Bilirubin 0.8 AST 63 H ALT 43 Alkaline Phosphatase 79 Troponin I < 0.020 C-Reactive Prot, Quant B-Natriuretic Peptide 33 Total Protein 7.7 Albumin 4.0 Globulin 3.7 H Albumin/Globulin Ratio 1.1 L Triglycerides Cholesterol LDL Cholesterol, Calc HDL Cholesterol Cholesterol/HDL Ratio Procalcitonin 5.45 H Ur Collection Type Voided Urine Color Yellow Urine Clarity Turbid A Urine pH 6.0 Ur Specific [place] 1.034 Urine Protein 2+ A Urine Glucose (UA) Negative Urine Ketones Negative Urine Blood 1+ A Urine Nitrite Negative Urine Bilirubin 1+ A Urine Urobilinogen (Auto) 4.0 Ur Leukocyte Esterase Negative Urine RBC 4 H Urine WBC 19 H Ur Squamous Epith Cells 5 Urine Bacteria Rare Hyaline Casts < 1 01/17/25 01/17/25 05:12 07:01 WBC 20.0 H RBC 4.81 Hgb 13.3 L Hct 40.0 L MCV 83 MCH 27.7 MCHC 33.3 RDW Std Deviation 48.1 H Plt Count 215 Neut % (Auto) 88 H Lymph % (Auto) 4 L [place] % (Auto) 5 Eos % (Auto) 0 Baso % (Auto) 0 Neut # (Auto) 17.6 H Lymph # (Auto) 0.9 L [place] # (Auto) 1.0 H Eos # (Auto) 0.0 Baso # (Auto) 0.1 Immature Gran # (Auto) 0.46 H Absolute Nucleated RBC 0.02 H Immature Gran % 2 H Nucleated RBC % 0 ESR Cancelled PT INR APTT Sodium 132 L Potassium 3.9 Chloride 99 Carbon Dioxide 22.1 Anion Gap 11 BUN 16 Creatinine 1.4 H Estim Creat Clear Calc 171.1 eGFR > 60 BUN/Creatinine Ratio 11 L Glucose 123 H Calculated Osmolality 266 L Lactic Acid Calcium 8.3 Corrected Calcium 8.5 Phosphorus 2.6 Magnesium 1.7 Total Bilirubin 0.7 AST 67 H ALT 38 Alkaline Phosphatase 73 Troponin I C-Reactive Prot, Quant > 10.0 H B-Natriuretic Peptide Total Protein 6.9 Albumin 3.7 Globulin 3.2 Albumin/Globulin Ratio 1.2 Triglycerides 155 H Cholesterol 92 L LDL Cholesterol, Calc 44 HDL Cholesterol 17 L Cholesterol/HDL Ratio 5.4 Procalcitonin Ur Collection Type Urine Color Urine Clarity Urine pH Ur Specific [place] Urine Protein Urine Glucose (UA) Urine Ketones Urine Blood Urine Nitrite Urine Bilirubin Urine Urobilinogen (Auto) Ur Leukocyte Esterase Urine RBC Urine WBC Ur Squamous Epith Cells Urine Bacteria Hyaline Casts Quality Measures Quality Measures none Assessment & Plan Assessment Current Active Medications: Generic Name Dose Route Start Last Admin Trade Name Cruz PRN Reason Stop Dose Admin Acetaminophen 650 mg 01/17/25 01:23 Acetaminophen 325 Mg Tablet PO 02/16/25 01:22 Q6H PRN PAIN SCALE 1-3 (mild Amlodipine Besylate 5 mg 01/17/25 09:00 01/17/25 08:10 Amlodipine Besylate 5 Mg Tablet PO 02/16/25 08:59 5 mg QDAY BETSY Administration Dextrose 25 ml 01/17/25 01:29 Dextrose 50%-Water Inj 50 Ml Syringe IV 02/16/25 01:28 Q15MIN PRN BG 50-70 responsive npo pt Dextrose 50 ml 01/17/25 01:29 Dextrose 50%-Water Inj 50 Ml Syringe IV 02/16/25 01:28 Q15MIN PRN BG <50 OR BG <70 & pt unresponsive Glucagon 1 mg 01/17/25 01:29 Glucagon Inj 1 Mg Vial IM Q15MIN PRN BG <70, and no IV access Heparin Sodium (Porcine) 5,000 unit 01/17/25 09:00 01/17/25 08:10 Heparin Sod Inj 5000 Unit/Ml Vial SC 01/31/25 08:59 5,000 unit Q12HR BETSY Administration Lactated Ringer's 1,000 mls @ 75 mls/hr 01/17/25 01:30 01/17/25 02:24 Lactated Ringers IV 01/17/25 14:49 75 mls/hr .[id number] BETSY Administration Clindamycin Phosphate 900 mg/ 50 mls @ 50 mls/hr 01/17/25 14:00 IV Miscellaneous Supplies IV 01/24/25 13:59 Q8HR BETSY Cefepime HCl 2 gm/ Sodium 50 mls @ 100 mls/hr 01/17/25 01:31 01/17/25 06:12 Chloride IV 01/24/25 01:30 100 mls/hr Q8HR BETSY Administration Vancomycin HCl 200 mls @ 120 mls/hr 01/17/25 08:00 01/17/25 08:09 Vancomycin/Water 1gm Ivpb IV 01/24/25 07:59 120 mls/hr TID BETSY Administration Protocol Insulin Human Lispro 0 unit 01/17/25 07:30 01/17/25 08:23 Insulin Lispro (Admelog) 1 Unit/0.01 Ml Unit SC 02/16/25 07:29 Not Given ACHS [facility] Protocol Ondansetron HCl 4 mg 01/17/25 01:23 Ondansetron Inj 2 Mg/Ml Inj 2 Ml IVP 02/16/25 01:22 Q6H PRN NAUSEA OR VOMITING Protocol Pharmacy Consult 1 each 01/17/25 09:00 Vancomycin Pharmacy To Dose 1 Each Each IV 02/16/25 08:59 QDAY PRN CONSULT Pharmacy Consult 1 each 01/17/25 10:06 Pharmacy Renal Dose Adjustment 1 Ea XX 02/16/25 10:05 PRN PRN CONSULT Sennosides 1 tab 01/17/25 01:23 Senna Tablet PO 02/16/25 01:22 QDAY PRN constipation Protocol Plan Patient is a 39-year-old patient with past medical history of morbid obesity with BMI 101 and hypertension who presented on 01/16 for lower left back pain with shortness of breath and right groin pain, admitted for sepsis secondary to left leg cellulitis, with concern for necrotizing fasciitis, and panniculitis, with 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 On admission, patient was febrile with temp of 103.1 ?F, tachycardic, tachypneic, WBC of 17.9, with end organ dysfunction noted with JENNIFER. There is a great concern that patient could have necrotizing fasciitis and Del's gangrene however CT is unable to be obtained due to his BMI. Transfer was attempted on admission but unsuccessful. Per review of records, patient was admitted 04/2024 for same concern of cellulitis of left lower limb. At the time, lower extremity US was unremarkable and he was treated with oral antibiotics. Plan: - Plan to transfer for CT imaging of extremity due to concern for necrotizing fasciitis and Del's gangrene - Continue IV clindamycin 900 mg - Continue IV vancomycin 1g - Continue IV cefepime 2g - Referral to wound care - General Surgery Dr. De Souza consulted, appreciate recommendations - Infectious disease Dr. Martino consulted, appreciate recommendations #Acute kidney injury Likely secondary to sepsis versus prerenal azotemia. On admission, creatinine 1.5 (baseline 0.8). Plan: - Continue IVF resuscitation with LR - Avoid nephrotoxic agents - Renally dose medications - Replete electrolytes as needed - Encouraged oral hydration #Respiratory distress #Granuloma, previously seen Likely secondary to sepsis and cellulitis above. CXR on admission negative for pneumonia. Plan: - Supplemental oxygen as needed - Wean as tolerated #Hypertension Takes lisinopril 20 mg p.o. daily at home. Plan: - Hold lisinopril for now due to JENNIFER - Started on amlodipine 5 mg daily - Will monitor for lower extremity edema - Continue to monitor blood pressures #Morbid obesity BMI of 101.7. Patient was previously on Wegovy but lost follow up with PCP. Plan: - Consider starting GLP-1 inpatient - Consider bariatric surgery consultation when discharged Health Maintenance Disposition: IV antibiotics for cellulitis, concern for necrotizing fasciitis and Del's gangrene DVT prophylaxis: Heparin GI prophylaxis: Senna Diet: Carb consistent CODE STATUS: FULL Patient plan of care was discussed with the resident, Dr. Hou, and attending physician, Dr. Lerma. Alecia Vazquez, PGY-1 - The patient's plan was discussed with attending Dr. Trevor Hou MD PGY2 Internal Medicine Attending Provider Attestation/Addendum I have examined the patient, reviewed labs and imaging findings, discussed the case with the resident(s), and reviewed entered orders. I agree with the plan of care as outlined in this note, with these additional summaries/recommendations: Patient seen at bedside. No acute overnight events. Patient diagnosed with sepsis secondary to cellulitis on admission. Patient has impressive left lower extremity cellulitis that extends into the lower abdomen and pannus. No fluctuance on physical exam. Cellulitis is impressive and lower suspicion of necrotizing soft tissue infection although we are unable to obtain CT scan secondary to patient's body habitus. General surgery was consulted and recommends continuing high-dose IV antibiotics for now and we will follow-up. In the meantime we will continue transfer for CT scan. Follow-up blood cultures when available. Continue IV fluids for acute kidney injury. Most likely secondary to prerenal azotemia. Avoid nephrotoxic agents and renally dose medications. Continue pain management as needed which is well-controlled at this time. Counseled patient on weight loss. He denies a history of obstructive sleep apnea although suspect patient has undiagnosed LISA and responded well to BiPAP at night. Continue home antihypertensives. Repeat hematology and chemistry panel in AM. Patient updated on the plan and in agreement. Please see residents note for additional details and management. Dr. Florentin MD
[2025-01-17 10:58] LABS: Sed Rate (ESR) 125 mm/hr (0-15)
--- NOTE | 2025-01-17 13:44 | PC.SS ---
Joss Goldberg is a 39-year-old male admitted to [facility] for Sepsis, Cellulitis. SS conducted bedside contact with the patient to complete initial assessment and to discuss discharge planning. Role and reason explained. Patient confirmed demographic information. Patient identifies his Mother Swapna Goldberg [phone] as his surrogate decision maker. Pt states he is able to complete all ADL?s independent. Pt does not possesses any DME. [facility]. Pharmacy of choice is [facility]. Discharge options discussed and the pt wishes to return home.? Pt stated his mother will pick him up . No further intervention required at this time, vp digital marketing social media and crm would be available to address any further concerns. DC Plan: Home Contact: Mother Swapna Goldberg Address: Confirmed on face sheet PCP: [facility] [address]
--- NOTE | 2025-01-17 14:28 | PC.SS ---
Rounding: On IV ABX, pending HLOC
--- NOTE | 2025-01-17 18:02 | PD.IDPROG ---
Subjective Subjective Interval history: zL leg cellulitis. stopped using compression just last as they were driving Exam Vital Signs Temp Pulse Resp BP Pulse Ox O2 Del Method O2 Flow Rate 99.0 F 82 20 158/85 H 98 Nasal Cannula 3 01/17/25 16:00 01/17/25 17:54 01/17/25 16:00 01/17/25 17:54 01/17/25 16:00 01/17/25 16:00 01/17/25 16:00 FiO2 32 01/17/25 05:25 Narrative Exam impressive L leg cellulitis Objective - Internal Medicine Labs 01/17/25 05:12 01/17/25 05:12 Labs: Laboratory Results - last 24 hr 01/16/25 01/16/25 01/17/25 15:48 19:21 05:12 WBC 20.0 H RBC 4.81 Hgb 13.3 L Hct 40.0 L MCV 83 MCH 27.7 MCHC 33.3 RDW Std Deviation 48.1 H Plt Count 215 Neut % (Auto) 88 H Lymph % (Auto) 4 L [place] % (Auto) 5 Eos % (Auto) 0 Baso % (Auto) 0 Neut # (Auto) 17.6 H Lymph # (Auto) 0.9 L [place] # (Auto) 1.0 H Eos # (Auto) 0.0 Baso # (Auto) 0.1 Immature Gran # (Auto) 0.46 H Absolute Nucleated RBC 0.02 H Immature Gran % 2 H Nucleated RBC % 0 ESR Cancelled Sodium 132 L Potassium 3.9 Chloride 99 Carbon Dioxide 22.1 Anion Gap 11 BUN 16 Creatinine 1.4 H Estim Creat Clear Calc 171.1 eGFR > 60 BUN/Creatinine Ratio 11 L Glucose 123 H Calculated Osmolality 266 L Lactic Acid 1.4 Calcium 8.3 Corrected Calcium 8.5 Phosphorus Magnesium 1.1 L Total Bilirubin 0.7 AST 67 H ALT 38 Alkaline Phosphatase 73 Troponin I < 0.020 C-Reactive Prot, Quant > 10.0 H B-Natriuretic Peptide 33 Total Protein 6.9 Albumin 3.7 Globulin 3.2 Albumin/Globulin Ratio 1.2 Triglycerides 155 H Cholesterol 92 L LDL Cholesterol, Calc 44 HDL Cholesterol 17 L Cholesterol/HDL Ratio 5.4 01/17/25 07:01 WBC RBC Hgb Hct MCV MCH MCHC RDW Std Deviation Plt Count Neut % (Auto) Lymph % (Auto) [place] % (Auto) Eos % (Auto) Baso % (Auto) Neut # (Auto) Lymph # (Auto) [place] # (Auto) Eos # (Auto) Baso # (Auto) Immature Gran # (Auto) Absolute Nucleated RBC Immature Gran % Nucleated RBC % ESR 125 H Sodium Potassium Chloride Carbon Dioxide Anion Gap BUN Creatinine Estim Creat Clear Calc eGFR BUN/Creatinine Ratio Glucose Calculated Osmolality Lactic Acid Calcium Corrected Calcium Phosphorus 2.6 Magnesium 1.7 Total Bilirubin AST ALT Alkaline Phosphatase Troponin I C-Reactive Prot, Quant B-Natriuretic Peptide Total Protein Albumin Globulin Albumin/Globulin Ratio Triglycerides Cholesterol LDL Cholesterol, Calc HDL Cholesterol Cholesterol/HDL Ratio Assessment & Plan A&P Narrative L leg cellulitis started wednesday, so takes about that long to reverse and some spread beyond demarcations is normal. no overt septic arthritis at this point in time obesity lymphedema. not wearing compression since last they were driving and he took off the compression bc pending changed to ancef and doxy but this is likely strep. main prevention is compression. daily labs of limited value but are popularly obtained. Time Spent With Patient Time: Total time spent is greater than 50% in coordination of care (as documented) at patient's floor/unit and/or counseling patient:
--- NOTE | 2025-01-17 18:46 | ESCONSULT_ITS ---
RE: NANY MONREAL : 1985 DATE OF CONSULTATION: 01/17/2025 REFERRING PHYSICIAN: Dr. Mendes. REASON FOR CONSULTATION: Cellulitis of the left lower extremity of 2 days' duration admitted today. HISTORY OF PRESENT ILLNESS: The patient reports that his cellulitis began on Wednesday. On of last week, he stopped wearing his compression because they were driving. Sadly, that is the time when most swelling occurs, so it would have been a berger time to wear the compression. Rather he does not wear it, but he elected not to wear it. It is too late now. The most important prevention is going to be wearing of compression stockings. There is no overt septic arthritis at this point and all blood cultures are so far negative, but it is still very early as he only came in early today. PAST MEDICAL HISTORY: He has chronic lymphedema and obesity, but everyone in his family is heavy. He reports no medical problems otherwise and there is no surgical history. ALLERGIES: MOSTLY DIMETAPP AND RELATED COMPOUNDS. IMMUNIZATIONS: Last tetanus is unknown. He does not know when his last tetanus shot was. Flu shot is the same. He has had 2 COVID vaccines and has not had pneumococcal vaccination. FAMILY HISTORY: Positive for maternal grandmother with diabetes. Paternal grandmother also had diabetes, but she is apparently passed. SOCIAL HISTORY: He lives with his mother and 2 siblings. He quit smoking in April for other reasons. PHYSICAL EXAMINATION: On exam, the patient is heavyset. There is persistent cellulitis of the left lower extremity. The right lower extremity has some stasis changes, which appear to be somewhat chronic. There is no overt arthritis noted on the left leg and we will see where things go over time. In the meantime, I am going to switch the treatment from vancomycin, clindamycin and cefepime to Ancef and doxycycline. I am going to change the Ancef to 2 g every 6 hours because of his size. He is good size at 689 pounds, 5 feet 9 inches, BMI of over 100. I will check on him down the road. He is not unlikely to lose weight, so emphasizing that is going to be a waste of time, so I would probably focus on edema control and other measures because most of the genetics would favor relative obesity in this setting. DT: 18:10:58 TT: 18:44:00 Ref: [id number] - TID: [id number] MTDD
[2025-01-17] MEDS: ceFAZolin/D5W 2 GM IV 2 GM/100 ML BAG IV ×2 (20:19→23:36)
[2025-01-17] MEDS: DOXYCYCLINE 100 MG TABLET PO (20:20)
[2025-01-17 21:38] LABS: Vancomycin,Trough 7.1 mcg/mL (5.0-10.0)
[2025-01-18] VITALS (11 sets, daily range): BP systolic 118–151; BP diastolic 74–84; PULSE 80–95; RESP 16–25; TEMP 36.4–37; O2SAT 95–99; BMI 102.7; BMI 103.0
[2025-01-18] MEDS: ceFAZolin/D5W 2 GM IV 2 GM/100 ML BAG IV ×4 (05:14→23:41)
[2025-01-18 05:20] LABS: Basophils # (Auto) 0.1 Thou/mm3 (0.0-0.2); Basophils % (Auto) 0 % (0-2.5); Eosinophils # (Auto) 0.1 Thou/mm3 (0.0-0.5); Eosinophils % (Auto) 0 % (0-10); Hematocrit 37.6 % (41.0-53.0); Hemoglobin 12.3 g/dL (13.5-16.0); Immature Granulocytes Auto 0.68 Thou/mm3 (0.00-0.00); Lymphocytes # (Auto) 1.2 Thou/mm3 (1.0-4.8); Lymphocytes % (Auto) 7 % (10-50); Mean Corpuscular HGB Conc 32.7 g/dl (31.0-37.0); Mean Corpuscular Hemoglobin 27.8 pg (25.0-35.0); Mean Corpuscular Volume 85 fL (80-100); Monocytes # (Auto) 1.7 Thou/mm3 (0.0-0.8); Monocytes % (Auto) 10 % (0-12); Neutrophils # (Auto) 12.9 Thou/mm3 (1.8-7.7); Neutrophils % (Auto) 78 % (37-80); Nucleated Red Blood Cell # 0.02 Thou/mm3 (0.00-0.00); Nucleated Red Blood Cell % 0 /100 WBC (0); Platelet Count 215 Thou/mm3 (140-440); RDW Standard Deviation 49.8 fL (35.1-43.9); Red Blood Count 4.42 Miln/mm3 (4.50-5.90); White Blood Count 16.5 Thou/mm3 (3.8-10.6)
[2025-01-18 05:35] LABS: INR 1.1 (0.9-1.3); Prothrombin Time 11.9 Seconds (9.0-12.2)
[2025-01-18 05:57] LABS: HIV (1&2) Antibody Rapid Non-Reactive
[2025-01-18 06:01] LABS: Alanine Aminotransferase 38 U/L (10-49); Albumin, Serum 3.4 gm/dL (3.5-5.0); Albumin/Globulin Ratio 1.1 (1.2-2.2); Alkaline Phosphatase 91 U/L (46-116); Anion Gap 10 (7-16); Aspartate Amino Transferase 83 U/L (0-34); BUN/Creatinine Ratio 12 Ratio (12-20); Bilirubin,Total 0.6 mg/dL (0.3-1.2); Blood Urea Nitrogen 11 mg/dL (9-23); Calcium 8.1 mg/dL (8.3-10.6); Calcium (Corrected) 8.6 mg/dL (8.5-10.1); Carbon Dioxide 24.0 mMol/L (20.0-31.0); Chloride 100 mMol/L (98-107); Creatinine (Component) 0.9 mg/dL (0.6-1.3); Estimated Creatinine Clearance 268.1 mL/min (>60); Globulin 3.2 gm/dL (2.3-3.5); Glucose 141 mg/dL (74-106); Magnesium 1.7 mg/dL (1.6-2.6); Osmolality,Calculated 269 (275-295); Phosphorous 2.4 mg/dL (2.4-5.1); Potassium 3.8 mMol/L (3.4-5.1); Sodium 134 mMol/L (136-145); Total Protein 6.6 gm/dL (5.7-8.2); eGFR > 60 See Note
[2025-01-18] MEDS: HEPARIN SOD INJ 5000 UNIT/ML VIAL SC ×2 (08:15→20:14)
[2025-01-18] MEDS: DOXYCYCLINE 100 MG TABLET PO ×2 (08:15→20:14)
--- NOTE | 2025-01-18 12:03 | PC.CC ---
[id number] Blackwell about pending transfer. Transfer currently on hold waiting for Dr. Tejeda consult.
--- NOTE | 2025-01-18 13:23 | ESPR_ITS ---
Documentation for date of: 01/18/25 No overnight events. Afebrile but bullae with fluid filled that is draining, appears yellow but transparent. Continue IV antibiotics. Pending cultures. Pending Urology consult. Subjective Subjective Interval history: No acute events overnight. Patient seen and examined at bedside this AM. Rates his pain as 5/10 without movement, 7/10 when moving left leg. On exam, left lower extremity now has weeping bullae; however erythema appears to be receding. Per ID Dr. Martino, discontinued vanc, cefepime, and clindamycin and started on Ancef and doxycycline to treat to strep, low suspicion for necrotizing fasciitis or Del's. Panniculitis continues to be erythematous and weeping. No purulent discharge observed. Labs and vitals were reviewed. Blood pressure improving on amlodipine and carvedilol. WBC improving on abx, Hgb slowly dropping however no acute bleed noted at this time, will continue to monitor. Creatinine improved, JENNIFER resolved, consider starting on home dose Lisinopril. Encouraged oral hydration. Still pending transfer for CT imaging. Review of systems otherwise negative except what is mentioned above. Exam Vital Signs Temp Pulse Resp BP Pulse Ox O2 Del Method O2 Flow Rate 98.4 F 85 17 133/74 H 95 Oxy Mask 2 01/18/25 08:00 01/18/25 08:15 01/18/25 08:00 01/18/25 08:15 01/18/25 08:00 01/18/25 08:00 01/18/25 08:00 FiO2 32 01/17/25 22:20 Narrative Exam Physical Exam General: Morbidly obese, sitting up in bed. Awake and in no acute distress. Conversational and non-toxic appearing. Saturating well on 2L oxygen via nasal cannula. HEENT: Normocephalic, atraumatic, mucous membranes moist. Heart: Regular rate and rhythm, normal S1 and S2, no murmurs. Lungs: Clear to auscultation with no wheezing or crackles. Abdomen: Soft, positive bowel sounds. Panniculitis with erythema and tenderness to palpation, weeping wounds present. No guarding or rebound tenderness. Neurologic: Alert and oriented x3, no gross neurological deficit, and patient able to move all 4 extremities. Extremities: Cellulitis and tenderness of left lower extremity with erythema now receding, new weeping bullae, evidence of venous stasis in bilateral lower extremities. Skin: No rash or ecchymoses. Objective Labs 01/19/25 04:55 01/18/25 05:05 Labs: Laboratory Results - last 24 hr 01/17/25 01/18/25 21:04 05:05 WBC 16.5 H RBC 4.42 L Hgb 12.3 L Hct 37.6 L MCV 85 MCH 27.8 MCHC 32.7 RDW Std Deviation 49.8 H Plt Count 215 Neut % (Auto) 78 Lymph % (Auto) 7 L [place] % (Auto) 10 Eos % (Auto) 0 Baso % (Auto) 0 Neut # (Auto) 12.9 H Lymph # (Auto) 1.2 [place] # (Auto) 1.7 H Eos # (Auto) 0.1 Baso # (Auto) 0.1 Immature Gran # (Auto) 0.68 H Absolute Nucleated RBC 0.02 H Immature Gran % 4 H Nucleated RBC % 0 PT 11.9 INR 1.1 Sodium 134 L Potassium 3.8 Chloride 100 Carbon Dioxide 24.0 Anion Gap 10 BUN 11 Creatinine 0.9 D Estim Creat Clear Calc 268.1 eGFR > 60 BUN/Creatinine Ratio 12 Glucose 141 H Calculated Osmolality 269 L Calcium 8.1 L Corrected Calcium 8.6 Phosphorus 2.4 Magnesium 1.7 Total Bilirubin 0.6 AST 83 H ALT 38 Alkaline Phosphatase 91 D Total Protein 6.6 Albumin 3.4 L Globulin 3.2 Albumin/Globulin Ratio 1.1 L Vancomycin Trough 7.1 HIV 1&2 Antibody Rapid Non-Reactive Quality Measures Quality Measures none Assessment & Plan Assessment Current Active Medications: Generic Name Dose Route Start Last Admin Trade Name Cruz PRN Reason Stop Dose Admin Acetaminophen 650 mg 01/17/25 01:23 Acetaminophen 325 Mg Tablet PO 02/16/25 01:22 Q6H PRN PAIN SCALE 1-3 (mild Amlodipine Besylate 5 mg 01/17/25 09:00 01/18/25 08:15 Amlodipine Besylate 5 Mg Tablet PO 02/16/25 08:59 5 mg QDAY BETSY Administration Carvedilol 3.125 mg 01/17/25 17:30 01/18/25 08:15 Carvedilol 3.125 Mg Tablet PO 02/16/25 17:29 3.125 mg BIDWM BETSY Administration Dextrose 25 ml 01/17/25 01:29 Dextrose 50%-Water Inj 50 Ml Syringe IV 02/16/25 01:28 Q15MIN PRN BG 50-70 responsive npo pt Dextrose 50 ml 01/17/25 01:29 Dextrose 50%-Water Inj 50 Ml Syringe IV 02/16/25 01:28 Q15MIN PRN BG <50 OR BG <70 & pt unresponsive Doxycycline Hyclate 100 mg 01/17/25 21:00 01/18/25 08:15 Doxycycline 100 Mg Tablet PO 01/24/25 20:59 100 mg BID BETSY Administration Glucagon 1 mg 01/17/25 01:29 Glucagon Inj 1 Mg Vial IM Q15MIN PRN BG <70, and no IV access Heparin Sodium (Porcine) 5,000 unit 01/17/25 09:00 01/18/25 08:15 Heparin Sod Inj 5000 Unit/Ml Vial SC 01/31/25 08:59 5,000 unit Q12HR BETSY Administration Cefazolin Sodium 2 gm in 100 mls @ 100 mls/hr 01/17/25 18:15 01/18/25 12:33 Ancef 2gm Ivpb IV 01/24/25 18:14 100 mls/hr Q6HR BETSY Administration Insulin Human Lispro 0 unit 01/17/25 07:30 01/18/25 07:30 Insulin Lispro (Admelog) 1 Unit/0.01 Ml Unit SC 02/16/25 07:29 Not Given ACHS BETSY Protocol Ondansetron HCl 4 mg 01/17/25 01:23 Ondansetron Inj 2 Mg/Ml Inj 2 Ml IVP 02/16/25 01:22 Q6H PRN NAUSEA OR VOMITING Protocol Pharmacy Consult 1 each 01/17/25 10:06 Pharmacy Renal Dose Adjustment 1 Ea XX 02/16/25 10:05 PRN PRN CONSULT Sennosides 1 tab 01/17/25 01:23 Senna Tablet PO 02/16/25 01:22 QDAY PRN constipation Protocol Plan Patient is a 39-year-old patient with past medical history of morbid obesity with BMI 101 and hypertension who presented on 01/16 for lower left back pain with shortness of breath and right groin pain, admitted for sepsis secondary to left leg cellulitis, with concern for necrotizing fasciitis, and panniculitis, with 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 On admission, patient was febrile with temp of 103.1 ?F, tachycardic, tachypneic, WBC of 17.9, with end organ dysfunction noted with JENNIFER. There is a great concern that patient could have necrotizing fasciitis and Del's gangrene however CT is unable to be obtained due to his BMI. Transfer was attempted on admission but unsuccessful. Per review of records, patient was admitted 04/2024 for same concern of cellulitis of left lower limb. At the time, lower extremity US was unremarkable and he was treated with oral antibiotics. Venous doppler 01/17 negative for DVTs. Per ID Dr. Martino, low suspicion for necrotizing fasciitis or Del's gangrene, de-escalated antibiotics to Ancef and doxycycline, suspect strep. Plan: - Plan to transfer for CT imaging of extremity due to concern for necrotizing fasciitis and Del's gangrene - Discontinue cefepime, vanc, and clindamycin - Start Ancef 2g q6hr and doxycycline per ID recommendations (01/18- - Wound care following inpatient - Referral to outpatient wound care - General Surgery Dr. De Souza consulted, appreciate recommendations - Infectious disease Dr. Martino consulted, appreciate recommendations #Acute kidney injury - resolved Likely secondary to prerenal azotemia in setting of sepsis. On admission, creatinine 1.5 (baseline 0.8), now improved to 0.9. Plan: - Discontinue IVF resuscitation with LR - Encouraged oral hydration - Avoid nephrotoxic agents - Renally dose medications - Replete electrolytes as needed #Respiratory distress #Granuloma, previously seen Likely secondary to sepsis and cellulitis above. CXR on admission negative for pneumonia. Plan: - Supplemental oxygen as needed - Wean as tolerated #Hypertension Takes lisinopril 20 mg p.o. daily at home. Plan: - Hold home dose lisinopril - Continue amlodipine 5 mg daily - Continue carvedilol 3.125 mg BID - Will monitor for lower extremity edema - Continue to monitor blood pressures #Morbid obesity BMI of 101.7. Patient was previously on Wegovy but lost follow up with PCP. Plan: - Consider starting GLP-1 inpatient - Consider bariatric surgery consultation when discharged Health Maintenance Disposition: IV antibiotics for cellulitis, concern for necrotizing fasciitis and Del's gangrene, pending possible transfer for CT imaging DVT prophylaxis: Heparin GI prophylaxis: Senna Diet: Carb consistent CODE STATUS: FULL Patient plan of care was discussed with the resident, Dr. Hou, and attending physician, Dr. Lerma. Alecia Vazquez, PGY-1 Attending Provider Attestation/Addendum I have examined the patient, reviewed labs and imaging findings, discussed the case with the resident(s), and reviewed entered orders. I agree with the plan of care as outlined in this note, with these additional summaries/recommendations: Patient seen at bedside. No acute overnight events. Patient denies improvement in sleep quality overnight with CPAP/BiPAP. We will DC and patient can follow- up outpatient for his sleep study. Patient currently reports his lower extremity pain is controlled with current regimen. Patient diagnosed with sepsis secondary to cellulitis on admission. Patient has impressive left lower extremity cellulitis that extends into the lower abdomen and pannus which is improving with IV antibiotics. No fluctuance on physical exam although bullae now present. Cellulitis is impressive and low suspicion of necrotizing soft tissue infection although we are unable to obtain CT scan secondary to patient's body habitus. General surgery was consulted and recommends continuing high-dose IV antibiotics for now and we will follow-up. In the meantime we will continue transfer for CT scan. Blood cultures preliminarily show no growth at 24 hours. S/P IV fluids for acute kidney injury. Most likely secondary to prerenal azotemia. Avoid nephrotoxic agents and renally dose medications. Continue pain management as needed which is well-controlled at this time. Continue home antihypertensives. Repeat hematology and chemistry panel in AM. Patient updated on the plan and in agreement. Please see residents note for additional details and management. Dr. Florentin MD
--- NOTE | 2025-01-18 16:31 | PC.NURSE ---
Dr. Blackwell notified, Dr. Mendieta's office left messager that patient will need to be transfered out for urology
[2025-01-19] VITALS (12 sets, daily range): BP systolic 109–165; BP diastolic 64–83; PULSE 74–83; RESP 16–24; TEMP 36.1–36.7; O2SAT 94–100; BMI 103.0
[2025-01-19] MEDS: ceFAZolin/D5W 2 GM IV 2 GM/100 ML BAG IV (05:30)
[2025-01-19 06:40] LABS: Basophils # (Auto) 0.1 Thou/mm3 (0.0-0.2); Basophils % (Auto) 1 % (0-2.5); Eosinophils # (Auto) 0.1 Thou/mm3 (0.0-0.5); Eosinophils % (Auto) 1 % (0-10); Hematocrit 38.5 % (41.0-53.0); Hemoglobin 12.5 g/dL (13.5-16.0); Immature Granulocytes Auto 1.25 Thou/mm3 (0.00-0.00); Lymphocytes # (Auto) 1.1 Thou/mm3 (1.0-4.8); Lymphocytes % (Auto) 7 % (10-50); Mean Corpuscular HGB Conc 32.5 g/dl (31.0-37.0); Mean Corpuscular Hemoglobin 27.9 pg (25.0-35.0); Mean Corpuscular Volume 86 fL (80-100); Monocytes # (Auto) 1.8 Thou/mm3 (0.0-0.8); Monocytes % (Auto) 10 % (0-12); Neutrophils # (Auto) 12.6 Thou/mm3 (1.8-7.7); Neutrophils % (Auto) 74 % (37-80); Nucleated Red Blood Cell # 0.00 Thou/mm3 (0.00-0.00); Nucleated Red Blood Cell % 0 /100 WBC (0); Platelet Count 236 Thou/mm3 (140-440); RDW Standard Deviation 51.6 fL (35.1-43.9); Red Blood Count 4.48 Miln/mm3 (4.50-5.90); White Blood Count 16.9 Thou/mm3 (3.8-10.6)
[2025-01-19 07:28] LABS: Alanine Aminotransferase 40 U/L (10-49); Albumin, Serum 3.5 gm/dL (3.5-5.0); Albumin/Globulin Ratio 1.0 (1.2-2.2); Alkaline Phosphatase 116 U/L (46-116); Anion Gap 13 (7-16); Aspartate Amino Transferase 90 U/L (0-34); BUN/Creatinine Ratio 13 Ratio (12-20); Bilirubin,Total 0.5 mg/dL (0.3-1.2); Blood Urea Nitrogen 10 mg/dL (9-23); Calcium 8.4 mg/dL (8.3-10.6); Calcium (Corrected) 8.8 mg/dL (8.5-10.1); Carbon Dioxide 23.2 mMol/L (20.0-31.0); Chloride 99 mMol/L (98-107); Creatinine (Component) 0.8 mg/dL (0.6-1.3); Estimated Creatinine Clearance 299.1 mL/min (>60); Globulin 3.4 gm/dL (2.3-3.5); Glucose 117 mg/dL (74-106); Magnesium 1.8 mg/dL (1.6-2.6); Osmolality,Calculated 270 (275-295); Phosphorous 2.1 mg/dL (2.4-5.1); Potassium 3.6 mMol/L (3.4-5.1); Sodium 135 mMol/L (136-145); Total Protein 6.9 gm/dL (5.7-8.2); eGFR > 60 See Note
[2025-01-19] MEDS: HEPARIN SOD INJ 5000 UNIT/ML VIAL SC ×2 (08:32→20:57)
[2025-01-19] MEDS: DOXYCYCLINE 100 MG TABLET PO ×2 (08:32→20:57)
--- NOTE | 2025-01-19 09:21 | PC.CM ---
Addendum entered by Jeannine Owens RN 01/19/25 14:53: I am aware from a previous patient who needed bariatric CT they will not be able to accommodate patient's weight at [facility] in [place]. Dr. Miller states patient is improving. He states if we do find a place he would still like patient to transfer out for a CT scan. Original Note: 0964 [facility] has a weigh limit of 450lbs. [facility] in [place] has a limit of 550lbs. [facility] in [place] has a weight limit of 350lbs. [address] Hansen to discuss patient's need to transfer. I let her know if will be difficult to get patient accepted anywhere due to his weight. I let her know patient's weigh will be a barrier. DR. Hansen states they have a call out to Dr. Mendieta since yesterday and they are waiting to hear from him. Dr. Hansen states they are concerned for Del's gangrene. 0850 I spoke to patient's nurse Paula and I asked her to get the girth on this patient. 0801 I received a referral to transfer patient for CT of lower leg. Patient weighs 694 lbs.
[2025-01-19] MEDS: NAPH,KPH MBDB 1 PACKET (1.5 GM) PO (10:00)
--- NOTE | 2025-01-19 10:07 | PD.RESPRO ---
Documentation for date of: 01/19/25 No overnight events. Patient examined at bedside. Patient continues to have improved erythema that is residing from demarcated outline from admission. Large Bullae still present on left lower extremity. WBC 16.9, minimal change. Transitioned to oral antibiotics Keflex and doxycyline. Improked JENNIFER, resume home Lisinopril and carvedilol. Continue patient to ambulate. Subjective Subjective Interval history: No acute events overnight. Patient seen and examined at bedside this AM. Pain well controlled. Reports was able to ambulate to use the restroom last night. Has good urine output. Labs and vitals were reviewed. Hypertensive this morning, will restart Lisinopril as JENNIFER has resolved, discontinue amlodipine due to mild lower extremity edema. WBC slightly increased, ID changed abx to PO Keflex and doxy. Hgb continuing to slowly decline, no acute bleed observed, likely 2/2 to SUSY versus daily blood draws. Erythema in left lower leg continuing to recede, multiple bullae. Panniculitis less swollen, still erythematous. Blood and urine cultures negative, sepsis resolved. Review of systems otherwise negative except what is mentioned above. Exam Vital Signs Temp Pulse Resp BP Pulse Ox O2 Del Method O2 Flow Rate 98.0 F 83 21 H 155/75 H 94 L Nasal Cannula 2 01/19/25 08:00 01/19/25 08:32 01/19/25 08:00 01/19/25 08:32 01/19/25 08:00 01/19/25 08:00 01/19/25 08:00 FiO2 32 01/17/25 22:20 Narrative Exam Physical Exam General: Morbidly obese, sitting up in bed. Awake and in no acute distress. Conversational and non-toxic appearing. Saturating well on 4L oxygen via nasal cannula. HEENT: Normocephalic, atraumatic, mucous membranes moist. Heart: Regular rate and rhythm, normal S1 and S2, no murmurs. Lungs: Clear to auscultation with no wheezing or crackles. Abdomen: Soft, positive bowel sounds. Panniculitis with erythema and tenderness to palpation, weeping wounds present. No guarding or rebound tenderness. Neurologic: Alert and oriented x3, no gross neurological deficit, and patient able to move all 4 extremities. Extremities: Cellulitis and tenderness of left lower extremity with erythema receding, new weeping bullae, evidence of venous stasis in bilateral lower extremities. 1+ pitting edema on right leg. Skin: No rash or ecchymoses. Objective Labs 01/20/25 05:16 01/20/25 05:16 Labs: Laboratory Results - last 24 hr 01/19/25 04:55 WBC 16.9 H RBC 4.48 L Hgb 12.5 L Hct 38.5 L MCV 86 MCH 27.9 MCHC 32.5 RDW Std Deviation 51.6 H Plt Count 236 Neut % (Auto) 74 Lymph % (Auto) 7 L [place] % (Auto) 10 Eos % (Auto) 1 Baso % (Auto) 1 Neut # (Auto) 12.6 H Lymph # (Auto) 1.1 [place] # (Auto) 1.8 H Eos # (Auto) 0.1 Baso # (Auto) 0.1 Immature Gran # (Auto) 1.25 H Absolute Nucleated RBC 0.00 Immature Gran % 7 H Nucleated RBC % 0 Sodium 135 L Potassium 3.6 Chloride 99 Carbon Dioxide 23.2 Anion Gap 13 BUN 10 Creatinine 0.8 Estim Creat Clear Calc 299.1 eGFR > 60 BUN/Creatinine Ratio 13 Glucose 117 H Calculated Osmolality 270 L Calcium 8.4 Corrected Calcium 8.8 Phosphorus 2.1 L Magnesium 1.8 Total Bilirubin 0.5 AST 90 H ALT 40 Alkaline Phosphatase 116 D Total Protein 6.9 Albumin 3.5 Globulin 3.4 Albumin/Globulin Ratio 1.0 L Quality Measures Quality Measures none Assessment & Plan Assessment Current Active Medications: Generic Name Dose Route Start Last Admin Trade Name Cruz PRN Reason Stop Dose Admin Acetaminophen 650 mg 01/17/25 01:23 Acetaminophen 325 Mg Tablet PO 02/16/25 01:22 Q6H PRN PAIN SCALE 1-3 (mild Carvedilol 3.125 mg 01/17/25 17:30 01/19/25 08:32 Carvedilol 3.125 Mg Tablet PO 02/16/25 17:29 3.125 mg BIDWM BETSY Administration Dextrose 25 ml 01/17/25 01:29 Dextrose 50%-Water Inj 50 Ml Syringe IV 02/16/25 01:28 Q15MIN PRN BG 50-70 responsive npo pt Dextrose 50 ml 01/17/25 01:29 Dextrose 50%-Water Inj 50 Ml Syringe IV 02/16/25 01:28 Q15MIN PRN BG <50 OR BG <70 & pt unresponsive Doxycycline Hyclate 100 mg 01/17/25 21:00 01/19/25 08:32 Doxycycline 100 Mg Tablet PO 01/24/25 20:59 100 mg BID BETSY Administration Glucagon 1 mg 01/17/25 01:29 Glucagon Inj 1 Mg Vial IM Q15MIN PRN BG <70, and no IV access Heparin Sodium (Porcine) 5,000 unit 01/17/25 09:00 01/19/25 08:32 Heparin Sod Inj 5000 Unit/Ml Vial SC 01/31/25 08:59 5,000 unit Q12HR BETSY Administration Cefazolin Sodium 2 gm in 100 mls @ 100 mls/hr 01/17/25 18:15 01/19/25 05:30 Ancef 2gm Ivpb IV 01/24/25 18:14 100 mls/hr Q6HR BETSY Administration Insulin Human Lispro 0 unit 01/17/25 07:30 01/18/25 21:27 Insulin Lispro (Admelog) 1 Unit/0.01 Ml Unit SC 02/16/25 07:29 Not Given ACHS [facility] Protocol Lisinopril 20 mg 01/20/25 09:00 Lisinopril 20 Mg Tablet PO 02/19/25 08:59 QDAY BETSY Ondansetron HCl 4 mg 01/17/25 01:23 Ondansetron Inj 2 Mg/Ml Inj 2 Ml IVP 02/16/25 01:22 Q6H PRN NAUSEA OR VOMITING Protocol Pharmacy Consult 1 each 01/17/25 10:06 Pharmacy Renal Dose Adjustment 1 Ea XX 02/16/25 10:05 PRN PRN CONSULT Sennosides 1 tab 01/17/25 01:23 Senna Tablet PO 02/16/25 01:22 QDAY PRN constipation Protocol Plan Patient is a 39-year-old patient with past medical history of morbid obesity with BMI 101 and hypertension who presented on 01/16 for lower left back pain with shortness of breath and right groin pain, admitted for sepsis secondary to left leg cellulitis, with concern for necrotizing fasciitis, and panniculitis, with 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 On admission, patient was febrile with temp of 103.1 ?F, tachycardic, tachypneic, WBC of 17.9, with end organ dysfunction noted with JENNIFER. There is a great concern that patient could have necrotizing fasciitis and Del's gangrene however CT is unable to be obtained due to his BMI. Transfer was attempted on admission but unsuccessful. Per review of records, patient was admitted 04/2024 for same concern of cellulitis of left lower limb. At the time, lower extremity US was unremarkable and he was treated with oral antibiotics. Venous doppler 01/17 negative for DVTs. Per ID Dr. Martino, low suspicion for necrotizing fasciitis or Del's gangrene, de-escalated antibiotics to Ancef and doxycycline, suspect strep. Plan: - Plan to transfer for CT imaging of extremity due to concern for necrotizing fasciitis and Del's gangrene - Discontinue cefepime, vanc, and clindamycin (01/17) - Change to PO Keflex and PO doxycycline per ID recommendations (01/18- - Wound care following inpatient - Referral to outpatient wound care - General Surgery Dr. De Souza consulted, appreciate recommendations - Infectious disease Dr. Martino consulted, appreciate recommendations #Acute kidney injury - resolved Likely secondary to prerenal azotemia in setting of sepsis. On admission, creatinine 1.5 (baseline 0.8), now improved. Plan: - Encouraged oral hydration - Avoid nephrotoxic agents - Renally dose medications - Replete electrolytes as needed #Respiratory distress #Granuloma, previously seen Likely secondary to sepsis and cellulitis above. CXR on admission negative for pneumonia. Plan: - Supplemental oxygen as needed - Wean as tolerated #Hypertension Takes lisinopril 20 mg p.o. daily at home. Plan: - Restarte home dose lisinopril - Discontinue amlodipine 5 mg daily - Continue carvedilol 3.125 mg BID - Will monitor for lower extremity edema - Continue to monitor blood pressures #Morbid obesity BMI of 101.7. Patient was previously on Wegovy but lost follow up with PCP. Plan: - Consider starting GLP-1 inpatient - Consider bariatric surgery consultation when discharged Health Maintenance Disposition: IV antibiotics for cellulitis, concern for necrotizing fasciitis and Del's gangrene, pending possible transfer for CT imaging DVT prophylaxis: Heparin GI prophylaxis: Senna Diet: Carb consistent CODE STATUS: FULL Patient plan of care was discussed with the resident, Dr. Hou, and attending physician, Dr. Lerma. Alecia Chan, PGY-1 - The patient's plan was discussed with attending Dr. Florentin Hou MD PGY2 Internal Medicine Attending Provider Attestation/Addendum I have examined the patient, reviewed labs and imaging findings, discussed the case with the resident(s), and reviewed entered orders. I agree with the plan of care as outlined in this note, with these additional summaries/recommendations: Patient seen at bedside. No acute overnight events. Patient currently reports his lower extremity pain is controlled with current regimen. Patient diagnosed with sepsis secondary to cellulitis on admission. Sepsis now resolved. Patient has impressive left lower extremity cellulitis that extends into the lower abdomen and pannus which is improving with IV antibiotics. Borders are marked and cellulitis continues to improve. Cellulitis is impressive and low suspicion of necrotizing soft tissue infection although we are unable to obtain CT scan secondary to patient's body habitus. General surgery was consulted and recommends continuing high-dose IV antibiotics for now and we will follow-up. Blood cultures preliminarily show no growth at 48 hours. S/P IV fluids for acute kidney injury. Most likely secondary to prerenal azotemia. Avoid nephrotoxic agents and renally dose medications. Continue pain management as needed which is well-controlled at this time. Continue home antihypertensives. Repeat hematology and chemistry panel in AM. Patient updated on the plan and in agreement. Please see residents note for additional details and management. Dr. Florentin MD
--- NOTE | 2025-01-19 11:25 | PD.IDPROG ---
Subjective Subjective Interval history: good sized lad. cx neg. serology neg (hiv and hep c). aso pos before, not repeated. Exam Vital Signs Temp Pulse Resp BP Pulse Ox O2 Del Method O2 Flow Rate 98.0 F 79 21 H 149/72 H 94 L Nasal Cannula 2 01/19/25 08:00 01/19/25 10:23 01/19/25 08:00 01/19/25 10:23 01/19/25 08:00 01/19/25 08:00 01/19/25 08:00 FiO2 32 01/17/25 22:20 Narrative Exam sl less swelling. sl less redness on some O2. that is up to others, he is not on O2 at home Objective - Internal Medicine Labs 01/19/25 04:55 01/19/25 04:55 Labs: Laboratory Results - last 24 hr 01/19/25 04:55 WBC 16.9 H RBC 4.48 L Hgb 12.5 L Hct 38.5 L MCV 86 MCH 27.9 MCHC 32.5 RDW Std Deviation 51.6 H Plt Count 236 Neut % (Auto) 74 Lymph % (Auto) 7 L [place] % (Auto) 10 Eos % (Auto) 1 Baso % (Auto) 1 Neut # (Auto) 12.6 H Lymph # (Auto) 1.1 [place] # (Auto) 1.8 H Eos # (Auto) 0.1 Baso # (Auto) 0.1 Immature Gran # (Auto) 1.25 H Absolute Nucleated RBC 0.00 Immature Gran % 7 H Nucleated RBC % 0 Sodium 135 L Potassium 3.6 Chloride 99 Carbon Dioxide 23.2 Anion Gap 13 BUN 10 Creatinine 0.8 Estim Creat Clear Calc 299.1 eGFR > 60 BUN/Creatinine Ratio 13 Glucose 117 H Calculated Osmolality 270 L Calcium 8.4 Corrected Calcium 8.8 Phosphorus 2.1 L Magnesium 1.8 Total Bilirubin 0.5 AST 90 H ALT 40 Alkaline Phosphatase 116 D Total Protein 6.9 Albumin 3.5 Globulin 3.4 Albumin/Globulin Ratio 1.0 L Assessment & Plan A&P Narrative L leg cellulitis started wednesday, so takes about that long to reverse and some spread beyond demarcations is normal. admited early on wed no overt septic arthritis at this point in time obesity lymphedema. not wearing compression since last they were driving and he took off the compression bc neg hypoxia. cause uncertain. changed to po keflex and po doxy but this is likely strep. main prevention is compression. daily labs of limited value but are popularly obtained. will see wednesday if he remains in house home at your discretion. leg elevation and compression are things he can do at home. may need to get off O2 before release though staff likes sats in the mid 90's or higher, but w/u for mono is outpt and not inpt. and O2 not paid for unless sats <90 on room air. Time Spent With Patient Time: Total time spent is greater than 50% in coordination of care (as documented) at patient's floor/unit and/or counseling patient:
[2025-01-20] VITALS (11 sets, daily range): BP systolic 115–144; BP diastolic 70–78; PULSE 74–99; RESP 18–33; TEMP 36.1–37.1; O2SAT 97–99; BMI 103.2
--- NOTE | 2025-01-20 03:29 | PC.NURSE ---
patient's o2 drops when he has apnic episodes. He refuses bipap after education on why its needed. Dr Acuña ordered a high flow for sleep. I let respiratory know
--- NOTE | 2025-01-20 05:37 | PC.RT ---
pt took off mask awake at this time place on 3l nc spo2 98% nurse nelda made aware.
--- NOTE | 2025-01-20 06:07 | PC.NURSE ---
patient decided he would wear bipap while asleep. i measured patients girth for possible transfer for a ct scan. patient measures 40inches at the largest part of his body across.
[2025-01-20 06:17] LABS: Basophils # (Auto) 0.1 Thou/mm3 (0.0-0.2); Basophils % (Auto) 1 % (0-2.5); Eosinophils # (Auto) 0.1 Thou/mm3 (0.0-0.5); Eosinophils % (Auto) 1 % (0-10); Hematocrit 35.5 % (41.0-53.0); Hemoglobin 11.8 g/dL (13.5-16.0); Immature Granulocytes Auto 1.96 Thou/mm3 (0.00-0.00); Lymphocytes # (Auto) 1.2 Thou/mm3 (1.0-4.8); Lymphocytes % (Auto) 6 % (10-50); Mean Corpuscular HGB Conc 33.2 g/dl (31.0-37.0); Mean Corpuscular Hemoglobin 28.2 pg (25.0-35.0); Mean Corpuscular Volume 85 fL (80-100); Monocytes # (Auto) 1.8 Thou/mm3 (0.0-0.8); Monocytes % (Auto) 9 % (0-12); Neutrophils # (Auto) 15.2 Thou/mm3 (1.8-7.7); Neutrophils % (Auto) 74 % (37-80); Nucleated Red Blood Cell # 0.00 Thou/mm3 (0.00-0.00); Nucleated Red Blood Cell % 0 /100 WBC (0); Platelet Count 249 Thou/mm3 (140-440); RDW Standard Deviation 50.6 fL (35.1-43.9); Red Blood Count 4.19 Miln/mm3 (4.50-5.90); White Blood Count 20.5 Thou/mm3 (3.8-10.6)
[2025-01-20 06:35] LABS: Alanine Aminotransferase 37 U/L (10-49); Albumin, Serum 3.5 gm/dL (3.5-5.0); Albumin/Globulin Ratio 1.1 (1.2-2.2); Alkaline Phosphatase 124 U/L (46-116); Anion Gap 10 (7-16); Aspartate Amino Transferase 78 U/L (0-34); BUN/Creatinine Ratio 13 Ratio (12-20); Bilirubin,Total 0.6 mg/dL (0.3-1.2); Blood Urea Nitrogen 10 mg/dL (9-23); Calcium 8.3 mg/dL (8.3-10.6); Calcium (Corrected) 8.7 mg/dL (8.5-10.1); Carbon Dioxide 25.7 mMol/L (20.0-31.0); Chloride 100 mMol/L (98-107); Creatinine (Component) 0.8 mg/dL (0.6-1.3); Estimated Creatinine Clearance 299.5 mL/min (>60); Globulin 3.2 gm/dL (2.3-3.5); Glucose 116 mg/dL (74-106); Magnesium 2.2 mg/dL (1.6-2.6); Osmolality,Calculated 271 (275-295); Phosphorous 2.9 mg/dL (2.4-5.1); Potassium 3.6 mMol/L (3.4-5.1); Sodium 136 mMol/L (136-145); Total Protein 6.7 gm/dL (5.7-8.2); eGFR > 60 See Note
[2025-01-20] MEDS: HEPARIN SOD INJ 5000 UNIT/ML VIAL SC ×2 (08:36→20:57)
[2025-01-20] MEDS: DOXYCYCLINE 100 MG TABLET PO ×2 (08:36→20:57)
--- NOTE | 2025-01-20 09:00 | PD.RESPRO ---
Documentation for date of: 01/20/25 Subjective Subjective Interval history: Patient is evaluated bedside, overnight events reviewed, no fever reported overnight, rash is receding behind the borders, bullous lesions noted. The patient had previous told us that he is ambulatory, and and walks to the restroom. Today patient reported he has more pain in his legs when he tries to ambulate. Will order physical therapy, antibiotics were changed to p.o. antibiotics by ID specialist Dr Martino. Currently on Keflex and doxycycline. Cultures negative to date. Exam Vital Signs Temp Pulse Resp BP Pulse Ox O2 Del Method O2 Flow Rate 97.3 F 76 22 H 153/73 H 99 Nasal Cannula 2 01/21/25 08:00 01/21/25 08:12 01/21/25 08:00 01/21/25 08:12 01/21/25 08:00 01/21/25 08:00 01/21/25 08:00 FiO2 32 01/20/25 03:47 Narrative Exam Physical Exam General: Morbidly obese, sitting up in bed. Awake and in no acute distress. Conversational and non-toxic appearing. Saturating well on 4L oxygen via nasal cannula. HEENT: Normocephalic, atraumatic, mucous membranes moist. Heart: Regular rate and rhythm, normal S1 and S2, no murmurs. Lungs: Clear to auscultation with no wheezing or crackles. Abdomen: Soft, positive bowel sounds. Panniculitis with erythema and tenderness to palpation, weeping wounds present. No guarding or rebound tenderness. Neurologic: Alert and oriented x3, no gross neurological deficit, and patient able to move all 4 extremities. Extremities: Cellulitis and tenderness of left lower extremity with erythema receding, new weeping bullae, evidence of venous stasis in bilateral lower extremities. 1+ pitting edema on right leg. Skin: No rash or ecchymoses. Objective Labs 01/22/25 05:34 01/22/25 05:34 Labs: Laboratory Results - last 24 hr 01/20/25 01/21/25 05:16 05:22 WBC 22.3 H RBC 4.25 L Hgb 11.7 L Hct 37.1 L MCV 87 MCH 27.5 MCHC 31.5 RDW Std Deviation 52.8 H Plt Count 331 D Neut % (Auto) 71 Lymph % (Auto) 7 L [place] % (Auto) 9 Eos % (Auto) 1 Baso % (Auto) 0 Neut # (Auto) 15.8 H Lymph # (Auto) 1.5 [place] # (Auto) 1.9 H Eos # (Auto) 0.2 Baso # (Auto) 0.1 Immature Gran # (Auto) 2.87 H Absolute Nucleated RBC 0.00 Immature Gran % 13 H Nucleated RBC % 0 Smear Path Review Sent to Pathologist Sodium 136 Potassium 4.0 Chloride 99 Carbon Dioxide 27.7 Anion Gap 9 BUN 10 Creatinine 0.8 Estim Creat Clear Calc 299.5 eGFR > 60 BUN/Creatinine Ratio 13 Glucose 115 H Calculated Osmolality 271 L Calcium 8.5 Quality Measures Quality Measures none Assessment & Plan Assessment Current Active Medications: Generic Name Dose Route Start Last Admin Trade Name Freq PRN Reason Stop Dose Admin Acetaminophen 650 mg 01/17/25 01:23 Acetaminophen 325 Mg Tablet PO 02/16/25 01:22 Q6H PRN PAIN SCALE 1-3 (mild Carvedilol 3.125 mg 01/17/25 17:30 01/21/25 08:11 Carvedilol 3.125 Mg Tablet PO 02/16/25 17:29 3.125 mg BIDWM BETSY Administration Cephalexin HCl 1,000 mg 01/19/25 12:00 01/21/25 05:59 Cephalexin 250 Mg Capsule PO 01/24/25 12:00 1,000 mg QID BETSY Administration Dextrose 25 ml 01/17/25 01:29 Dextrose 50%-Water Inj 50 Ml Syringe IV 02/16/25 01:28 Q15MIN PRN BG 50-70 responsive npo pt Dextrose 50 ml 01/17/25 01:29 Dextrose 50%-Water Inj 50 Ml Syringe IV 02/16/25 01:28 Q15MIN PRN BG <50 OR BG <70 & pt unresponsive Doxycycline Hyclate 100 mg 01/17/25 21:00 01/21/25 08:12 Doxycycline 100 Mg Tablet PO 01/24/25 20:59 100 mg BID BETSY Administration Glucagon 1 mg 01/17/25 01:29 Glucagon Inj 1 Mg Vial IM Q15MIN PRN BG <70, and no IV access Heparin Sodium (Porcine) 5,000 unit 01/17/25 09:00 01/21/25 08:12 Heparin Sod Inj 5000 Unit/Ml Vial SC 01/31/25 08:59 5,000 unit Q12HR BETSY Administration Lisinopril 20 mg 01/20/25 09:00 01/21/25 08:12 Lisinopril 20 Mg Tablet PO 02/19/25 08:59 20 mg QDAY BETSY Administration Ondansetron HCl 4 mg 01/17/25 01:23 Ondansetron Inj 2 Mg/Ml Inj 2 Ml IVP 02/16/25 01:22 Q6H PRN NAUSEA OR VOMITING Protocol Sennosides 1 tab 01/17/25 01:23 Senna Tablet PO 02/16/25 01:22 QDAY PRN constipation Protocol Plan Patient is a 39-year-old patient with past medical history of morbid obesity with BMI 101 and hypertension who presented on 01/16 for lower left back pain with shortness of breath and right groin pain, admitted for sepsis secondary to left leg cellulitis, with concern for necrotizing fasciitis, and panniculitis, with 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 #Sepsis secondary to cellulitis - resolving #Cellulitis, #Panniculitis, Likely secondary to body habitus and morbid obesity. On admission, patient was febrile with temp of 103.1 ?F, tachycardic, tachypneic, WBC of 17.9, with end organ dysfunction noted with JENNIFER. There is a great concern that patient could have necrotizing fasciitis and Del's gangrene however CT is unable to be obtained due to his BMI. Transfer was attempted on admission but unsuccessful. Per review of records, patient was admitted 04/2024 for same concern of cellulitis of left lower limb. At the time, lower extremity US was unremarkable and he was treated with oral antibiotics. Venous doppler 01/17 negative for DVTs. Per ID Dr. Martino, low suspicion for necrotizing fasciitis or Del's gangrene, de-escalated antibiotics to Ancef and doxycycline, suspect strep. There was concern for necrotizing fasciitis due to rapid and extensive spread of rash, and inability to get a CT scan due to patient's BMI. Attempts to transfer for radiology services were unsuccessful. Also rash involving patient's groin and suprapubic area, noted scrotal swelling, there was concern for Del's gangrene, urology was consulted pending recommendations. But patient made good improvement on IV antibiotics rash is receding, no visible evidence of gangrene. Less concerned about Del's gangrene or necrotizing fasciitis at this point. Plan: - Discontinue cefepime, vanc, and clindamycin (01/17) - Change to PO Keflex and PO doxycycline per ID recommendations (01/18- - Wound care following inpatient - Referral to outpatient wound care - General Surgery Dr. De Souza consulted, appreciate recommendations - Infectious disease Dr. Martino consulted, appreciate recommendations - Urologist Dr. Mendieta consulted, appreciate recommendations #Acute kidney injury - resolved Likely secondary to prerenal azotemia in setting of sepsis. On admission, creatinine 1.5 (baseline 0.8), now improved. Plan: - Encouraged oral hydration - Avoid nephrotoxic agents - Renally dose medications - Replete electrolytes as needed # Possible obstructive sleep apnea #Granuloma, previously seen Likely secondary to sepsis and cellulitis above. CXR on admission negative for pneumonia. Patient has a BMI of 100, requires supplemental oxygen, noted apneic spells at night, likely obstructive sleep apnea. Patient was offered BiPAP at night, but he continues to refuse it says it makes him more uncomfortable. Plan: - Supplemental oxygen as needed - Wean as tolerated - Recommended to get a sleep study outpatient for formal diagnosis of LISA, ideally use CPAP to bed. #Hypertension Takes lisinopril 20 mg p.o. daily at home. Plan: - Restarte home dose lisinopril - Discontinue amlodipine 5 mg daily - Continue carvedilol 3.125 mg BID - Will monitor for lower extremity edema - Continue to monitor blood pressures #Morbid obesity BMI of 101.7. Patient was previously on Wegovy but lost follow up with PCP. Plan: - Consider starting GLP-1 inpatient - Consider bariatric surgery consultation when discharged Health Maintenance Disposition: IV antibiotics for cellulitis, concern for necrotizing fasciitis and Del's gangrene, pending possible transfer for CT imaging DVT prophylaxis: Heparin GI prophylaxis: Senna Diet: Carb consistent CODE STATUS: FULL Patient plan of care was discussed with the resident, Dr. Hou, and attending physician, Dr. Lerma. Alecia Vazquez, PGY-1 - The patient's plan was discussed with attending Dr. Florentin Miller [id number] Attending Provider Attestation/Addendum I have examined the patient, reviewed labs and imaging findings, discussed the case with the resident(s), and reviewed entered orders. I agree with the plan of care as outlined in this note, with these additional summaries/recommendations: Patient seen at bedside. No acute overnight events. Patient continues to endorse minimal improvement in lower extremity rash. Yesterday patient endorsed unsteadiness on his feet and physical therapy consultation ordered and pending. Patient was transitioned to oral antibiotics and there is some improvement in rash although WBC count has increased 3 days in a row. Currently 22.3. We will continue current regimen and repeat hematology panel in AM. Blood cultures show no growth at 48 hours. JENNIFER resolved. Continue pain management as needed. Patient updated on the plan and in agreement. Please see residents note for additional details and management. Dr. Florentin MD
--- NOTE | 2025-01-20 13:32 | PD.RESDS ---
Planned Discharge Date 01/20/25 DS: Providers Provider Date of admission: 01/17/25 01:23 Primary care physician: Physician No Primary/Family Admitting Provider: Margaret Mendes MD Attending Provider on Admission: Margaret Mendes MD Consults: 01/17/25 01:35 Consult to General Surgery Stat Comment: Consulting Provider: Verenice De Souza 01/17/25 07:00 Referral Wound Care Routine Comment: 01/17/25 07:23 Consult to Infectious Diseases Routine Comment: Consulting Provider: Vamsi Martino 01/17/25 14:25 Referral Nutritional Services Routine Comment: 01/17/25 14:28 Referral OP Wound Healing Dept Routine Comment: Cellulits LLE 01/17/25 17:03 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 Patient seen and examined at bedside this AM. Pain well controlled. Reports was able to ambulate to use the restroom last night. Has good urine output. Labs and vitals were reviewed. Hypertensive this morning, will restart Lisinopril as JENNIFER has resolved, discontinue amlodipine due to mild lower extremity edema. WBC slightly increased, ID changed abx to PO Keflex and doxy. Hgb continuing to slowly decline, no acute bleed observed, likely 2/2 to SUSY versus daily blood draws. Erythema in left lower leg continuing to recede, multiple bullae. Panniculitis less swollen, still erythematous. Blood and urine cultures negative, sepsis resolved. Review of systems otherwise negative except what is mentioned above. Time Spent with Patient Time attestation: Total time spent providing and/or coordinating discharge services: Exam Vital Signs Temp Pulse Resp BP Pulse Ox O2 Del Method O2 Flow Rate 97.2 F 74 21 H 122/74 98 Room Air 3 01/20/25 12:00 01/20/25 12:00 01/20/25 12:00 01/20/25 12:00 01/20/25 12:00 01/20/25 12:00 01/20/25 08:00 FiO2 32 01/20/25 03:47 Discharge Plan Plan Patient Disposition: HOME (Self Care) Patient condition on transfer: Stable Care Plan Goals: Please follow up with you PCP within 5 days of discharge from hospital, and go over your recent hospitalization and medication changes. Recommend starting weightloss medications like wegovy, please talk to your primary doctor for that. Also recommend to get a Sleep study and possible CPAP if indicated. Continue antibiotics for 11 more days for treatment of cellutlitis , also its very important to keep the affected leg elevated and using compression once skin is healed. Follow up at [facility], [address] [place] [address]. Call [phone] for appointment. Left lower leg cellulites: shower daily and apply moisturizing cream daily. Monitor redness and swelling, if increasing redness, pain, swelling or fevers return to ED Prescriptions/Referrals Prescriptions/Med Rec: New amlodipine 10 mg tablet 10 mg PO QDAY 30 Days Qty: 30 0RF cephalexin 500 mg capsule 1,000 mg PO QID 11 Days Qty: 88 0RF sennosides [Senna Lax] 8.6 mg Tablet 8.6 mg PO QDAY PRN (Reason: constipation) Qty: 20 0RF lisinopril 20 mg Tablet 20 mg PO QDAY 30 Days Qty: 30 0RF doxycycline hyclate 100 mg Tablet 100 mg PO BID 11 Days Qty: 22 0RF Continued ascorbic acid (vitamin C) [Vitamin C] 250 mg Tablet 500 mg PO BID Qty: 60 0RF zinc sulfate 220 (50) mg Capsule 220 mg PO QDAY Qty: 30 0RF One Daily Multi-Vit w-Mineral 4.5 mg iron Tablet 1 tab PO QDAY Qty: 30 0RF Discontinued lisinopril 20 mg Tablet 20 mg PO QDAY Qty: 30 0RF Patient Comments: patient states prescribed this medication but patient states has not taken it for awhile. ibuprofen 800 mg tablet 800 mg PO BID PRN (Reason: pain) Qty: 14 0RF hydrochlorothiazide 12.5 mg Capsule 12.5 mg PO QDAY Qty: 30 0RF Culturelle 10 billion cell Capsule 1 cap PO BID Qty: 60 0RF Referrals: Alexandro Plasencia MD [Physician] - No Primary/Family,Physician [Primary Care Provider] - Patient/Caregiver Discharge Instructions Education Materials: Discharge Instructions for Cellulitis Print Language: Swedish Stand Alone Forms: Nina Award Info., Patient Portal Info Letter Attestestation Attestation I have examined the patient, reviewed labs and imaging findings, discussed the case with the resident(s), and reviewed entered orders. I agree with the plan of care as outlined in this note, with these additional summaries/recommendations: Patient seen at bedside. No acute overnight events. Patient endorses weakness today and physical therapy consultation ordered. Patient currently reports his lower extremity pain is controlled with current regimen. Patient diagnosed with sepsis secondary to cellulitis on admission. Sepsis now resolved. Patient has impressive left lower extremity cellulitis that extends into the lower abdomen and pannus which is improving with IV antibiotics. Borders are marked and cellulitis continues to improve. Cellulitis is impressive and low suspicion of necrotizing soft tissue infection although we are unable to obtain CT scan secondary to patient's body habitus. General surgery was consulted and recommends continuing high-dose IV antibiotics for now and we will follow-up. Blood cultures preliminarily show no growth at 48 hours. S/P IV fluids for acute kidney injury. Most likely secondary to prerenal azotemia. Avoid nephrotoxic agents and renally dose medications. Continue pain management as needed which is well-controlled at this time. Continue home antihypertensives. Repeat hematology and chemistry panel in AM. Patient updated on the plan and in agreement. Please see residents note for additional details and management. Dr. Florentin MD
--- NOTE | 2025-01-20 14:29 | PC.SS ---
Possible d/c today. However, pt is complaining of trouble walking. Per rounding this afternoon, PT will be requested. No definite d/c at this time.
--- NOTE | 2025-01-20 15:01 | PC.NURSE ---
Pt resting on Room air o2 sats 94%, while attempting to sit at the edge of the bed pts o2 sats dropped to 80% on room air, placed pt on 2L NC o2 sats increased to 96%
[2025-01-20 16:06] LABS: Path Review Blood Smear Sent to Pathologist
--- NOTE | 2025-01-20 18:59 | PC.CC ---
Unable to work on this transfer due to multiple concurrent ER and inpatient transfers including a repatriation.
[2025-01-21] VITALS (14 sets, daily range): BP systolic 121–160; BP diastolic 62–73; PULSE 70–83; RESP 17–96; TEMP 36.3–36.7; O2SAT 95–100; BMI 103.2; BMI 11.0
[2025-01-21 06:01] LABS: Basophils # (Auto) 0.1 Thou/mm3 (0.0-0.2); Basophils % (Auto) 0 % (0-2.5); Eosinophils # (Auto) 0.2 Thou/mm3 (0.0-0.5); Eosinophils % (Auto) 1 % (0-10); Hematocrit 37.1 % (41.0-53.0); Hemoglobin 11.7 g/dL (13.5-16.0); Immature Granulocytes Auto 2.87 Thou/mm3 (0.00-0.00); Lymphocytes # (Auto) 1.5 Thou/mm3 (1.0-4.8); Lymphocytes % (Auto) 7 % (10-50); Mean Corpuscular HGB Conc 31.5 g/dl (31.0-37.0); Mean Corpuscular Hemoglobin 27.5 pg (25.0-35.0); Mean Corpuscular Volume 87 fL (80-100); Monocytes # (Auto) 1.9 Thou/mm3 (0.0-0.8); Monocytes % (Auto) 9 % (0-12); Neutrophils # (Auto) 15.8 Thou/mm3 (1.8-7.7); Neutrophils % (Auto) 71 % (37-80); Nucleated Red Blood Cell # 0.00 Thou/mm3 (0.00-0.00); Nucleated Red Blood Cell % 0 /100 WBC (0); Platelet Count 331 Thou/mm3 (140-440); RDW Standard Deviation 52.8 fL (35.1-43.9); Red Blood Count 4.25 Miln/mm3 (4.50-5.90); White Blood Count 22.3 Thou/mm3 (3.8-10.6)
[2025-01-21 06:26] LABS: Anion Gap 9 (7-16); BUN/Creatinine Ratio 13 Ratio (12-20); Blood Urea Nitrogen 10 mg/dL (9-23); Calcium 8.5 mg/dL (8.3-10.6); Carbon Dioxide 27.7 mMol/L (20.0-31.0); Chloride 99 mMol/L (98-107); Creatinine (Component) 0.8 mg/dL (0.6-1.3); Estimated Creatinine Clearance 299.5 mL/min (>60); Glucose 115 mg/dL (74-106); Osmolality,Calculated 271 (275-295); Potassium 4.0 mMol/L (3.4-5.1); Sodium 136 mMol/L (136-145); eGFR > 60 See Note
[2025-01-21] MEDS: DOXYCYCLINE 100 MG TABLET PO ×2 (08:12→20:13)
[2025-01-21] MEDS: HEPARIN SOD INJ 5000 UNIT/ML VIAL SC ×2 (08:12→20:13)
--- NOTE | 2025-01-21 09:26 | PC.SS ---
Addendum entered by Scarlet Mantilla 01/21/25 11:33: ASW contacted pts mother Swapna Goldberg [phone] and informed her that the O2 was approved by [facility] and that [facility] will delivery the O2 to the room and set up the O2 at the residence when pt is ready for d/c. Pts mother was cooperative and understood. Addendum entered by Scarlet Mantilla 01/21/25 11:30: Per Pete Quiroz from [facility], O2 is set up for delivery when pt is ready d/c. Addendum entered by Scarlet Mantilla 01/21/25 11:20: [facility] accepted pt for O2. [facility] will f/u with pts family for delivery of O2 to pts home prior to d/c. Original Note: ASW submitted to [facility] for O2 for pt. ASW advised that pt will need O2 prior to d/c.
--- NOTE | 2025-01-21 10:20 | PC.CC ---
Addendum entered by Sabino Kenney RN 01/21/25 11:22: 1120 TC nurses have tried multiple facilities (see previous notes as well) for transfer for CT imaging. [facility], [facility], [facility], [facility], [facility], [facility] all declined due to pt weight. I reached out to Dr. Vazquez and informed. Orders received to cancel the transfer at this point. Addendum entered by Sabino Kenney RN 01/21/25 11:15: 1110 called [facility] TC, spoke to Benita for transfer for CT imaging. Benita informed me that their CT limit is 450 lbs. 1104 called [facility] TC, spoke to Brandi for transfer for CT imaging. Brandi informed me that their CT limit is 650 lbs, girth limit is 60 cm.? Addendum entered by Sabino Kenney RN 01/21/25 11:03: 1051 called [facility] TC, spoke to Aden for transfer for CT imaging. Aden informed me that their CT limit is 500 lbs. Addendum entered by Sabino Kenney RN 01/21/25 10:45: 1015 Dr. Vazquez stated pt is stable and cellulitis is improving, but there is no imaging that is why need transfer. Per Physician notes less concern for Del's Gangrene. I informed Dr. Vazquez that I will attempt to transfer the patient but it is less likely possible due to pt weight. Original Note: [address] Vazquez regarding transfer need. Dr. Vazquez pt still need transfer for imaging CT of left leg, groin and perineum. Patient weight is 316.162 kg.
--- NOTE | 2025-01-21 13:42 | ESPR_ITS ---
Documentation for date of: 01/21/25 Subjective Subjective Interval history: No acute events overnight. Patient seen and examined at bedside this AM. Pain is same as usual. No other complaints at this time. Patient is hypertensive this morning, if continues will consider increasing home dose lisinopril. On physical exam, erythema continues to be receding, appears less swollen. Will continue PO Keflex, and doxy, will need to continue for 10 more days outpatient. Still pending PT consult tomorrow as patient reports he is having trouble walking, anticipate discharge after evaluation. Home oxygen has been arranged. Review of systems otherwise negative except what is mentioned above. Exam Vital Signs Temp Pulse Resp BP Pulse Ox O2 Del Method O2 Flow Rate 97.6 F 77 19 160/73 H 100 Nasal Cannula 2 01/21/25 12:05 01/21/25 12:37 01/21/25 12:37 01/21/25 12:05 01/21/25 12:05 01/21/25 12:05 01/21/25 12:05 FiO2 32 01/21/25 12:05 Narrative Exam Physical Exam General: Morbidly obese, sitting up in bed. Awake and in no acute distress. Conversational and non-toxic appearing. Saturating well on 2L oxygen via nasal cannula. HEENT: Normocephalic, atraumatic, mucous membranes moist. Heart: Regular rate and rhythm, normal S1 and S2, no murmurs. Lungs: Clear to auscultation with no wheezing or crackles. Abdomen: Soft, positive bowel sounds. Panniculitis with erythema and tenderness to palpation, weeping wounds present. No guarding or rebound tenderness. Neurologic: Alert and oriented x3, no gross neurological deficit, and patient able to move all 4 extremities. Extremities: Cellulitis and tenderness of left lower extremity with erythema receding, new weeping bullae, evidence of venous stasis in bilateral lower extremities. 1+ pitting edema on right leg. Skin: No rash or ecchymoses. Objective Labs 01/22/25 05:34 01/22/25 05:34 Labs: Laboratory Results - last 24 hr 01/20/25 01/21/25 05:16 05:22 WBC 22.3 H RBC 4.25 L Hgb 11.7 L Hct 37.1 L MCV 87 MCH 27.5 MCHC 31.5 RDW Std Deviation 52.8 H Plt Count 331 D Neut % (Auto) 71 Lymph % (Auto) 7 L [place] % (Auto) 9 Eos % (Auto) 1 Baso % (Auto) 0 Neut # (Auto) 15.8 H Lymph # (Auto) 1.5 [place] # (Auto) 1.9 H Eos # (Auto) 0.2 Baso # (Auto) 0.1 Immature Gran # (Auto) 2.87 H Absolute Nucleated RBC 0.00 Immature Gran % 13 H Nucleated RBC % 0 Smear Path Review Sent to Pathologist Sodium 136 Potassium 4.0 Chloride 99 Carbon Dioxide 27.7 Anion Gap 9 BUN 10 Creatinine 0.8 Estim Creat Clear Calc 299.5 eGFR > 60 BUN/Creatinine Ratio 13 Glucose 115 H Calculated Osmolality 271 L Calcium 8.5 Quality Measures Quality Measures none Assessment & Plan Assessment Current Active Medications: Generic Name Dose Route Start Last Admin Trade Name Freq PRN Reason Stop Dose Admin Acetaminophen 650 mg 01/17/25 01:23 Acetaminophen 325 Mg Tablet PO 02/16/25 01:22 Q6H PRN PAIN SCALE 1-3 (mild Carvedilol 3.125 mg 01/17/25 17:30 01/21/25 08:11 Carvedilol 3.125 Mg Tablet PO 02/16/25 17:29 3.125 mg BIDWM BETSY Administration Cephalexin HCl 1,000 mg 01/19/25 12:00 01/21/25 12:15 Cephalexin 250 Mg Capsule PO 01/24/25 12:00 1,000 mg QID BETSY Administration Dextrose 25 ml 01/17/25 01:29 Dextrose 50%-Water Inj 50 Ml Syringe IV 02/16/25 01:28 Q15MIN PRN BG 50-70 responsive npo pt Dextrose 50 ml 01/17/25 01:29 Dextrose 50%-Water Inj 50 Ml Syringe IV 02/16/25 01:28 Q15MIN PRN BG <50 OR BG <70 & pt unresponsive Doxycycline Hyclate 100 mg 01/17/25 21:00 01/21/25 08:12 Doxycycline 100 Mg Tablet PO 01/24/25 20:59 100 mg BID BETSY Administration Glucagon 1 mg 01/17/25 01:29 Glucagon Inj 1 Mg Vial IM Q15MIN PRN BG <70, and no IV access Heparin Sodium (Porcine) 5,000 unit 01/17/25 09:00 01/21/25 08:12 Heparin Sod Inj 5000 Unit/Ml Vial SC 01/31/25 08:59 5,000 unit Q12HR BETSY Administration Lisinopril 20 mg 01/20/25 09:00 01/21/25 08:12 Lisinopril 20 Mg Tablet PO 02/19/25 08:59 20 mg QDAY BETSY Administration Ondansetron HCl 4 mg 01/17/25 01:23 Ondansetron Inj 2 Mg/Ml Inj 2 Ml IVP 02/16/25 01:22 Q6H PRN NAUSEA OR VOMITING Protocol Sennosides 1 tab 01/17/25 01:23 Senna Tablet PO 02/16/25 01:22 QDAY PRN constipation Protocol Plan Patient is a 39-year-old patient with past medical history of morbid obesity with BMI 101 and hypertension who presented on 01/16 for lower left back pain with shortness of breath and right groin pain, admitted for sepsis secondary to left leg cellulitis and panniculitis, currently on antibiotics #Sepsis secondary to cellulitis - resolved #Cellulitis #Panniculitis #Leukocytosis Likely secondary to body habitus and morbid obesity. On admission, patient was febrile with temp of 103.1 ?F, tachycardic, tachypneic, WBC of 17.9, with end organ dysfunction noted with JENNIFER. There is a great concern that patient could have necrotizing fasciitis and Del's gangrene however CT is unable to be obtained due to his BMI. Transfer was attempted on admission but unsuccessful. Per review of records, patient was admitted 04/2024 for same concern of cellulitis of left lower limb. At the time, lower extremity US was unremarkable and he was treated with oral antibiotics. Venous doppler 01/17 negative for DVTs. Per ID Dr. Martino, low suspicion for necrotizing fasciitis or Del's gangrene, de-escalated antibiotics to Ancef and doxycycline, suspect strep. There was concern for necrotizing fasciitis due to rapid and extensive spread of rash, and inability to get a CT scan due to patient's BMI. Attempts to transfer for radiology services were unsuccessful. Also rash involving patient's groin and suprapubic area, noted scrotal swelling, there was concern for Del's gangrene, urology was consulted pending recommendations. But patient made good improvement on IV antibiotics rash is receding, no visible evidence of gangrene. Less concerned about Del's gangrene or necrotizing fasciitis at this point. 01/21: WBC uptrending, consider touching base with ID Dr. Martino regarding trend if continues tomorrow. Continue to monitor. Plan: - Discontinue cefepime, vanc, and clindamycin (01/17) - Continue PO Keflex and PO doxycycline per ID recommendations (01/18- - Wound care following inpatient - Referral to outpatient wound care - General Surgery Dr. De Souza consulted, appreciate recommendations - Infectious disease Dr. Martino consulted, appreciate recommendations - Urologist Dr. Mendieta consulted, appreciate recommendations #Hypertension Takes lisinopril 20 mg p.o. daily at home. Plan: - Continue home dose lisinopril - Continue carvedilol 3.125 mg BID - Will monitor for lower extremity edema - Continue to monitor blood pressures #Acute kidney injury - resolved Likely secondary to prerenal azotemia in setting of sepsis. On admission, creatinine 1.5 (baseline 0.8), now improved. Plan: - Encouraged oral hydration - Avoid nephrotoxic agents - Renally dose medications - Replete electrolytes as needed # Possible obstructive sleep apnea #Granuloma, previously seen Likely secondary to sepsis and cellulitis above. CXR on admission negative for pneumonia. Patient has a BMI of 100, requires supplemental oxygen, noted apneic spells at night, likely obstructive sleep apnea. Patient was offered BiPAP at night, but he continues to refuse it says it makes him more uncomfortable. Plan: - Supplemental oxygen as needed - Wean as tolerated - Recommended to get a sleep study outpatient for formal diagnosis of LISA, ideally use CPAP to bed. #Morbid obesity BMI of 101.7. Patient was previously on Wegovy but lost follow up with PCP. Plan: - Consider starting GLP-1 inpatient - Consider bariatric surgery consultation when discharged Health Maintenance Disposition: IV antibiotics for cellulitis DVT prophylaxis: Heparin GI prophylaxis: Senna Diet: Carb consistent CODE STATUS: FULL Patient plan of care was discussed with the attending physician, Dr. Lerma. Alecia Vazquez, PGY-1 Attending Provider Attestation/Addendum I have examined the patient, reviewed labs and imaging findings, discussed the case with the resident(s), and reviewed entered orders. I agree with the plan of care as outlined in this note, with these additional summaries/recommendations: Patient seen at bedside. No acute overnight events. Patient continues to endorse minimal improvement in lower extremity rash. Yesterday patient endorsed unsteadiness on his feet and physical therapy consultation ordered and pending. Patient was transitioned to oral antibiotics and there is some improvement in rash although WBC count has increased 3 days in a row. Currently 22.3. We will continue current regimen and repeat hematology panel in AM. Blood cultures show no growth at 48 hours. JENNIFER resolved. Continue pain management as needed. Patient updated on the plan and in agreement. Please see residents note for additional details and management. Dr. Florentin MD
[2025-01-21] MEDS: ACETAMINOPHEN 325 MG TABLET 650 MG PO (20:13)
[2025-01-22] VITALS (8 sets, daily range): BP systolic 107–135; BP diastolic 61–79; PULSE 71–93; RESP 16–28; TEMP 36.1–36.8; O2SAT 93–98; BMI 101.3
[2025-01-22 06:08] LABS: Basophils # (Auto) 0.1 Thou/mm3 (0.0-0.2); Basophils % (Auto) 1 % (0-2.5); Eosinophils # (Auto) 0.2 Thou/mm3 (0.0-0.5); Eosinophils % (Auto) 1 % (0-10); Hematocrit 35.5 % (41.0-53.0); Hemoglobin 11.5 g/dL (13.5-16.0); Immature Granulocytes Auto 2.65 Thou/mm3 (0.00-0.00); Lymphocytes # (Auto) 1.3 Thou/mm3 (1.0-4.8); Lymphocytes % (Auto) 7 % (10-50); Mean Corpuscular HGB Conc 32.4 g/dl (31.0-37.0); Mean Corpuscular Hemoglobin 28.4 pg (25.0-35.0); Mean Corpuscular Volume 88 fL (80-100); Monocytes # (Auto) 1.6 Thou/mm3 (0.0-0.8); Monocytes % (Auto) 8 % (0-12); Neutrophils # (Auto) 13.3 Thou/mm3 (1.8-7.7); Neutrophils % (Auto) 69 % (37-80); Nucleated Red Blood Cell # 0.00 Thou/mm3 (0.00-0.00); Nucleated Red Blood Cell % 0 /100 WBC (0); Platelet Count 393 Thou/mm3 (140-440); RDW Standard Deviation 52.4 fL (35.1-43.9); Red Blood Count 4.05 Miln/mm3 (4.50-5.90); White Blood Count 19.2 Thou/mm3 (3.8-10.6)
[2025-01-22 06:27] LABS: Anion Gap 9 (7-16); BUN/Creatinine Ratio 14 Ratio (12-20); Blood Urea Nitrogen 11 mg/dL (9-23); Calcium 8.2 mg/dL (8.3-10.6); Carbon Dioxide 28.9 mMol/L (20.0-31.0); Chloride 97 mMol/L (98-107); Creatinine (Component) 0.8 mg/dL (0.6-1.3); Estimated Creatinine Clearance 295.4 mL/min (>60); Glucose 118 mg/dL (74-106); Magnesium 1.8 mg/dL (1.6-2.6); Osmolality,Calculated 270 (275-295); Phosphorous 3.6 mg/dL (2.4-5.1); Potassium 4.0 mMol/L (3.4-5.1); Sodium 135 mMol/L (136-145); eGFR > 60 See Note
--- NOTE | 2025-01-22 08:22 | PC.CC ---
spoke to Dr. Vazquez, she confirmed the order to transfer patient is canceled.
[2025-01-22] MEDS: DOXYCYCLINE 100 MG TABLET PO (08:30)
[2025-01-22] MEDS: HEPARIN SOD INJ 5000 UNIT/ML VIAL SC (08:30)
[2025-01-22] MEDS: Magnesium Sulfate 2 GM Ivpb 2 GM/50 ML BAG IV (08:31)
--- NOTE | 2025-01-22 09:24 | PD.IDPROG ---
Subjective Subjective Interval history: remains here at discretion of others. on oral rx Exam Vital Signs Temp Pulse Resp BP Pulse Ox O2 Del Method O2 Flow Rate 96.9 F 93 20 107/79 98 Nasal Cannula 2 01/22/25 04:00 01/22/25 08:30 01/22/25 07:18 01/22/25 08:30 01/22/25 07:18 01/22/25 04:00 01/22/25 07:18 FiO2 32 01/21/25 12:05 Narrative Exam blistering L leg noted. Objective - Internal Medicine Labs 01/22/25 05:34 01/22/25 05:34 Labs: Laboratory Results - last 24 hr 01/22/25 05:34 WBC 19.2 H RBC 4.05 L Hgb 11.5 L Hct 35.5 L MCV 88 MCH 28.4 MCHC 32.4 RDW Std Deviation 52.4 H Plt Count 393 D Neut % (Auto) 69 Lymph % (Auto) 7 L [place] % (Auto) 8 Eos % (Auto) 1 Baso % (Auto) 1 Neut # (Auto) 13.3 H Lymph # (Auto) 1.3 [place] # (Auto) 1.6 H Eos # (Auto) 0.2 Baso # (Auto) 0.1 Immature Gran # (Auto) 2.65 H Absolute Nucleated RBC 0.00 Immature Gran % 14 H Nucleated RBC % 0 Sodium 135 L Potassium 4.0 Chloride 97 L Carbon Dioxide 28.9 Anion Gap 9 BUN 11 Creatinine 0.8 Estim Creat Clear Calc 295.4 eGFR > 60 BUN/Creatinine Ratio 14 Glucose 118 H Calculated Osmolality 270 L Calcium 8.2 L Phosphorus 3.6 Magnesium 1.8 Assessment & Plan A&P Narrative L leg cellulitis started wednesday, so takes about that long to reverse and some spread beyond demarcations is normal. admited early on wed no overt septic arthritis at this point in time obesity lymphedema. not wearing compression since last they were driving and he took off the compression bc neg hypoxia. cause uncertain. changed to high dose po keflex and po doxy on wednesday but this is likely strep. main prevention is compression. daily labs of limited value but are popularly obtained. will see again prn home at your discretion. leg elevation and compression are things he can do at home. Time Spent With Patient Time: Total time spent is greater than 50% in coordination of care (as documented) at patient's floor/unit and/or counseling patient:
--- NOTE | 2025-01-22 09:58 | PC.SS ---
Addendum entered by Virgen Leigh 01/22/25 15:29: [facility] [place] unavailable to fulfill FWW order due to No Bariatric FWW Original Note: SS met with pt at to discuss DC planning. PT recommended SNF for Short Term Rehab, pt wishes to go home, refuses SNF. SS noted pt has O2 at bedside with concentrator from [facility] [place]. PT also recommended Bariatric FWW, SS reached out to [facility] [place] to see if this order is available for them to fulfill, pending response.
--- NOTE | 2025-01-22 11:16 | ESDS_ITS ---
Planned Discharge Date 01/22/25 DS: Providers Provider Date of admission: 01/17/25 01:23 Primary care physician: Physician No Primary/Family Admitting Provider: Margaret Mendes MD Attending Provider on Admission: Margaret Mendes MD Consults: 01/17/25 01:35 Consult to General Surgery Stat Comment: Consulting Provider: Verenice De Souza 01/17/25 07:00 Referral Wound Care Routine Comment: 01/17/25 07:23 Consult to Infectious Diseases Routine Comment: Consulting Provider: Vamsi Martino 01/17/25 14:25 Referral Nutritional Services Routine Comment: 01/17/25 14:28 Referral OP Wound Healing Dept Routine Comment: Cellulits LLE 01/17/25 17:03 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 Consulting Provider: Klever Mendieta 01/20/25 13:00 Referral Physical Therapy Urgent Comment: Physician Instructions: Attending Provider on DC: RESIDENT Antonio Discharging Provider: RESIDENT Antonio DS: Diagnosis Problem List Completed Was Problem List Reviewed/Reconciled?: Yes Hospital Course Hospital Course Hospital course: Summary: Patient is a 39-year-old patient with past medical history of morbid obesity with BMI 101 and hypertension who presented on 01/16 with a chief complain with lower extremity erythema and was admitted for sepsis secondary to left leg cellulitis and panniculitis and started on antibiotics. Patient was discharge with 9 additional days of antibiotics. ED Course: Vitals: BP 156/74, HR 100, RR 22, temp 103.1 ?F, saturating 100 on 5 L nasal cannula Labs: WBC 17.9, sodium 131, chloride 97, BUN 17, creatinine 1.5 with a GFR of greater than 60, lactic acid was initially 3.0 but has downtrended to 1.4, magnesium of 1.1, AST 63, ALT 43, troponin less than 0.030, BNP of 33, Pro-Antoine 5.45. Urinalysis showed proteinuria, hematuria, pyuria but no overt signs of infection. Imaging: Chest x-ray showed no lobar pneumonia, EKG showed sinus tachycardia with frequent PVCs and tibia-fibula x-ray showed no fracture or cortical bone destruction. Reason for hospitalization: Patient is a 39-year-old patient with past medical history of morbid obesity with BMI 101 and hypertension who presented on 01/16 for lower left back pain with shortness of breath and right groin pain, admitted for sepsis secondary to left leg cellulitis and panniculitis, patient qualified for sepsis due to JENNIFER which resolved while holding lisinopril and encouraging oral hydration. Originally concern for necrotizing fasciitis and Raza's gangrene however CT could not be obtained due to morbid obesity. Attempted transfer however was unsuccessful. Of note patient was previously admitted 04/2024 for same concern of cellulitis of left lower limb. At the time, lower extremity US was unremarkable and he was treated with oral antibiotics. Venous Doppler 01/17 was negative for DVTs. Consulted ID Dr Martino who had low suspicion for NF or 40 years, de-escalated antibiotics to Ancef and doxycycline suspecting strep. Leukocytosis improved on oral antibiotic regimen, cellulitis in left leg has begun to recede, panniculitis still erythematous but less swollen, both improving. Upon PT evaluation, recommended discharge to SNF however patient was not agreeable, wanted home with home health instead. Will need to continue oral Ancef and doxycycline for another 9 days. Emphasized the patient that he needs to follow-up with outpatient wound care. Stressed importance of weight loss, recommended starting weight loss medications like Wegovy. Patient required oxygen during admission but was eventually weaned off, recommended that patient get a sleep study and possible CPAP. Discharge Recommendations: * Please follow up with you PCP within 5 days of discharge from hospital, and go over your recent hospitalization and medication changes. * Recommend starting weightloss medications like wegovy, please talk to your primary doctor for that. Also recommend to get a Sleep study and possible CPAP if indicated. * Continue antibiotics for 9 more days for treatment of cellutlitis , also its very important to keep the affected leg elevated and using compression once skin is healed. * Follow up at [facility], [address] [place] [address]. Call [phone] for appointment. * Left lower leg cellulites: shower daily and apply moisturizing cream daily. Monitor redness and swelling, if increasing redness, pain, swelling or fevers return to ED Hospital Diagnoses: #Sepsis secondary to cellulitis?resolved #Cellulitis #Panniculitis #Leukocytosis #Hypertension #JENNIFER, prerenal?resolved #Possible obstructive sleep apnea #Granuloma, previously seen #Morbid obesity #BMI 101.7 Disposition: Safe discharge to Home with home health and wound care, sent home with oxygen Patient plan of care was discussed with the resident, Dr. Hou, and attending physician, Dr. Lerma. Alecia Vazquez, PGY-1 - The patient's plan was discussed with attending Dr. Trevor Hou MD PGY2 Internal Medicine Time Spent with Patient Time attestation: Total time spent providing and/or coordinating discharge services: At least 30 minutes of care coordination Time spent: Greater than 30 minutes Exam Vital Signs Temp Pulse Resp BP Pulse Ox O2 Del Method O2 Flow Rate 97.0 F 93 20 107/79 93 L Nasal Cannula 2 01/22/25 08:00 01/22/25 08:30 01/22/25 08:00 01/22/25 08:30 01/22/25 08:00 01/22/25 08:00 01/22/25 08:00 FiO2 32 01/21/25 12:05 Narrative Exam Physical Exam General: Morbidly obese, sitting up in bed. Awake and in no acute distress. Conversational and non-toxic appearing. Saturating well on 2L oxygen via nasal cannula. HEENT: Normocephalic, atraumatic, mucous membranes moist. Heart: Regular rate and rhythm, normal S1 and S2, no murmurs. Lungs: Clear to auscultation with no wheezing or crackles. Abdomen: Soft, positive bowel sounds. Panniculitis with erythema and tenderness to palpation, weeping wounds present. No guarding or rebound tenderness. Neurologic: Alert and oriented x3, no gross neurological deficit, and patient able to move all 4 extremities. Extremities: Cellulitis and tenderness of left lower extremity with erythema receding, new weeping bullae, evidence of venous stasis in bilateral lower extremities. 1+ pitting edema on right leg. Skin: No rash or ecchymoses. Discharge Plan Plan Patient Disposition: HOME (Self Care) Patient condition on transfer: Stable Care Plan Goals: * Please follow up with you PCP within 5 days of discharge from hospital, and go over your recent hospitalization and medication changes. * Recommend starting weightloss medications like wegovy, please talk to your primary doctor for that. Also recommend to get a Sleep study and possible CPAP if indicated. * Continue antibiotics for 9 more days for treatment of cellutlitis , also its very important to keep the affected leg elevated and using compression once skin is healed. * Follow up at [facility], [address] [place] [address]. Call [phone] for appointment. * Left lower leg cellulites: shower daily and apply moisturizing cream daily. M onitor redness and swelling, if increasing redness, pain, swelling or fevers return to ED Prescriptions/Referrals Prescriptions/Med Rec: New amlodipine 10 mg tablet 10 mg PO QDAY 30 Days Qty: 30 0RF sennosides [Senna Lax] 8.6 mg Tablet 8.6 mg PO QDAY PRN (Reason: constipation) Qty: 20 0RF lisinopril 20 mg Tablet 20 mg PO QDAY 30 Days Qty: 30 0RF doxycycline hyclate 100 mg tablet 100 mg PO BID 9 Days Qty: 18 0RF cephalexin 500 mg tablet 1,000 mg PO QID 9 Days Qty: 72 0RF Continued ascorbic acid (vitamin C) [Vitamin C] 250 mg Tablet 500 mg PO BID Qty: 60 0RF zinc sulfate 220 (50) mg Capsule 220 mg PO QDAY Qty: 30 0RF One Daily Multi-Vit w-Mineral 4.5 mg iron Tablet 1 tab PO QDAY Qty: 30 0RF Discontinued lisinopril 20 mg Tablet 20 mg PO QDAY Qty: 30 0RF Patient Comments: patient states prescribed this medication but patient states has not taken it for awhile. ibuprofen 800 mg tablet 800 mg PO BID PRN (Reason: pain) Qty: 14 0RF hydrochlorothiazide 12.5 mg Capsule 12.5 mg PO QDAY Qty: 30 0RF Culturelle 10 billion cell Capsule 1 cap PO BID Qty: 60 0RF Referrals: Alexandro Plasencia MD [Physician] - No Primary/Family,Physician [Primary Care Provider] - Patient/Caregiver Discharge Instructions Education Materials: Nutrition for Wound Healing, Discharge Instructions for Cellulitis, Wound Care Dc, ED Cellulitis Print Language: Latvian Stand Alone Forms: Nina Award Info., Patient Portal Info Letter Discharge Order Discharge Orders: Discharge (Routine); Ordered 01/22/25 Ordered By: Jovita Hou Quality Discharge Quality Measures VTE prophylaxis Attestestation Attestation I have examined the patient, reviewed labs and imaging findings, discussed the case with the resident(s), and reviewed entered orders. I agree with the plan of care as outlined in this note. Time Spent: [address] Florentin MD
--- NOTE | 2025-01-22 15:03 | PC.RT ---
SS went to meet with pt in regards to HH, pt stated he is open to HH being set up. Pt does not have a preference. SS also inquired if pt is ok with SS reaching ou tot [facility] to help assist with FWW as local DMEs do not have bariatric FWW. Pt stated it is ok for SS to reach out to them. SS reached out to the clinic [phone], Clinic closed, but SS spoke to Maame with the answering service who took SS information and pt information. Maame stated she will leave them a message for tomorrow.
--- NOTE | 2025-01-23 10:27 | PC.SS ---
Addendum entered by Virgen Leigh 01/23/25 11:22: SS received a call from Joyce, who transferred SS to Sami, who transferred me to Michelle, who transferred me to JACK Johnson per Krysten pt had an over the phone with provider yesterday and they will work on DME and wound care for the pt Original Note: MART reached out to [facility] [phone] in regards to resources for pt needing a walker and wound care. Per rep she will forward information to their Public Health Nurse (who is currently on Vacation) as well as their DON. SS was then transferred to [facility] Dept for assistance with DME referral for Bariatric FWW, Joyce did not answer. Therefore SS left a VM with call back#.
== END 2025-01-22 15:10 | disposition home or self-care (01) | DRG 871 ==
LOC: SERX 22:05 → SERHOLD 01-17 01:54 → S2NX 01-17 04:06
PROVIDERS: Internal Medicine Infectious Disease; Physician Assistant Medical; Student in an Organized Health Care Education/Training Program; Admitting Provider Student in an Organized Health Care Education/Training Program; Emergency Provider Emergency Medicine; Visit Provider Student in an Organized Health Care Education/Training Program
DX: A41.9 Sepsis, unspecified organism (principal); M72.6 Necrotizing fasciitis; E87.1 Hypo-osmolality and hyponatremia; Z68.45 Body mass index [BMI] 70 or greater, adult; L03.116 Cellulitis of left lower limb; N17.9 Acute kidney failure, unspecified; E87.20 Acidosis, unspecified; I10 Essential (primary) hypertension; E66.01 Morbid (severe) obesity due to excess calories; M79.3 Panniculitis, unspecified; R06.03 Acute respiratory distress; L92.9 Granulomatous disorder of the skin and subcutaneous tissue, unspecified; G47.33 Obstructive sleep apnea (adult) (pediatric); I73.9 Peripheral vascular disease, unspecified; I89.0 Lymphedema, not elsewhere classified; Z79.899 Other long term (current) drug therapy; Z87.891 Personal history of nicotine dependence
CPT/HCPCS: 36415; 71045; 73590; 76700; 80048; 80053; 80061; 80202; 81001; 83605; 83735; 83880; 84100; 84145; 84484; 85025; 85610; 85652; 85730; 86140; 86703; 87040; 87086; 93005; 93306; 93971; 94660; 94762; 96361; 96365; 96366; 97161; 99285; J0689; J0692; J1644; J3373; J3375; J3475; J7030; J7050; J7120; J7999; S0077; A9270; J0736

== ENCOUNTER → 2025-01-25 | Outpatient (CLI) | payer OTHER, MEDICAID, SELFPAY | END | disposition home or self-care (01) | LOC: SWHD 07:59 | PROVIDERS: PCP Physician Assistant; Referring Provider Physician Assistant; Visit Provider Student in an Organized Health Care Education/Training Program | DX: I87.312 Chronic venous hypertension (idiopathic) with ulcer of left lower extremity (principal); L97.821 Non-pressure chronic ulcer of other part of left lower leg limited to breakdown of skin; I89.0 Lymphedema, not elsewhere classified; E66.01 Morbid (severe) obesity due to excess calories | CPT/HCPCS: 97597; 97598 ×33; 99213; G0463 ==

== ENCOUNTER → 2025-01-26 | Outpatient (CLI) | payer OTHER, MEDICAID, SELFPAY | END | disposition home or self-care (01) | LOC: SWHD 15:11 | PROVIDERS: PCP Physician Assistant; Referring Provider Physician Assistant; Visit Provider Student in an Organized Health Care Education/Training Program | DX: I87.312 Chronic venous hypertension (idiopathic) with ulcer of left lower extremity (principal); L97.821 Non-pressure chronic ulcer of other part of left lower leg limited to breakdown of skin; I89.0 Lymphedema, not elsewhere classified; E66.01 Morbid (severe) obesity due to excess calories | CPT/HCPCS: 29581; A9270 ==

== ENCOUNTER → 2025-01-30 | Outpatient (CLI) | payer OTHER, MEDICAID, SELFPAY | END | disposition home or self-care (01) | LOC: SWHD 14:29 | PROVIDERS: PCP Physician Assistant; Referring Provider Physician Assistant; Visit Provider Student in an Organized Health Care Education/Training Program | DX: I87.312 Chronic venous hypertension (idiopathic) with ulcer of left lower extremity (principal); L97.822 Non-pressure chronic ulcer of other part of left lower leg with fat layer exposed; I89.0 Lymphedema, not elsewhere classified; E66.01 Morbid (severe) obesity due to excess calories | CPT/HCPCS: 97597; 97598 ×6 ==

== ENCOUNTER → 2025-02-15 | Outpatient (CLI) | payer OTHER, MEDICAID, SELFPAY | END | disposition home or self-care (01) | LOC: SWHD 14:49 | PROVIDERS: PCP Physician Assistant; Referring Provider Physician Assistant; Visit Provider Student in an Organized Health Care Education/Training Program | DX: I87.312 Chronic venous hypertension (idiopathic) with ulcer of left lower extremity (principal); L97.822 Non-pressure chronic ulcer of other part of left lower leg with fat layer exposed; I89.0 Lymphedema, not elsewhere classified; E66.01 Morbid (severe) obesity due to excess calories; I10 Essential (primary) hypertension; R73.03 Prediabetes | CPT/HCPCS: 29581 ==

== ENCOUNTER → 2025-03-01 | Outpatient (CLI) | payer OTHER, MEDICAID, SELFPAY | END | disposition home or self-care (01) | LOC: SWHD 14:40 | PROVIDERS: PCP Physician Assistant; Referring Provider Physician Assistant; Visit Provider Student in an Organized Health Care Education/Training Program | DX: I87.312 Chronic venous hypertension (idiopathic) with ulcer of left lower extremity (principal); L97.822 Non-pressure chronic ulcer of other part of left lower leg with fat layer exposed; I89.0 Lymphedema, not elsewhere classified; E66.01 Morbid (severe) obesity due to excess calories; I10 Essential (primary) hypertension; R73.03 Prediabetes | CPT/HCPCS: 99213; G0463 ==

== ENCOUNTER → 2025-04-05 | Outpatient (CLI) | payer BC, MEDICAID, SELFPAY | END | disposition home or self-care (01) | LOC: SWHD 09:54 | PROVIDERS: PCP Physician Assistant; Referring Provider Physician Assistant; Visit Provider Student in an Organized Health Care Education/Training Program | DX: I87.312 Chronic venous hypertension (idiopathic) with ulcer of left lower extremity (principal); L97.822 Non-pressure chronic ulcer of other part of left lower leg with fat layer exposed; I89.0 Lymphedema, not elsewhere classified; E66.01 Morbid (severe) obesity due to excess calories; I10 Essential (primary) hypertension; R73.03 Prediabetes | CPT/HCPCS: 99212; G0463 ==

== ENCOUNTER → 2025-04-27 | Outpatient (CLI) | payer BC, MEDICAID, SELFPAY ==
--- NOTE | 2025-04-27 09:15 | XR_ITS ---
Examination: Arterial duplex lower extremity study. Date and time of exam: April 27, 2025, 0922 hours INDICATIONS: Diagnosis chronic venous hypertension inflammation both legs, cellulitis pattern of both legs beginning several years ago with leg pain Findings: Duplex sonographic imaging of the lower extremity arteries using B-mode/Renteria scale imaging and Doppler spectral analysis and color flow. Right common femoral artery demonstrates no flow. Right superficial femoral artery demonstrates monophasic flow. Right popliteal artery demonstrates triphasic flow. Right posterior tibial artery demonstrated triphasic flow. Left common femoral artery demonstrates no flow. Left superficial femoral artery demonstrates monophasic flow. Left popliteal artery demonstrates monophasic flow. Left posterior tibial artery demonstrated monophasic flow. Impression: Significant bilateral peripheral obstructive arterial disease
== END | disposition home or self-care (01) ==
PROVIDERS: PCP Physician Assistant; Referring Provider Surgery Vascular Surgery; Visit Provider Surgery Vascular Surgery
DX: I70.203 Unspecified atherosclerosis of native arteries of extremities, bilateral legs (principal)
CPT/HCPCS: 93925